=== PATIENT | female | born 1970 | race Caucasian/White ===

== ENCOUNTER → 2016-05-02 | Outpatient (CLI) | payer OTHER | END | disposition home or self-care (01) | LOC: C.LAB1850 14:27 | PROVIDERS: ATTEND Internal Medicine Pulmonary Disease | DX: J90 Pleural effusion, not elsewhere classified (principal) ==

== ENCOUNTER 2022-06-16 19:05 | Inpatient (IN) ==
[2022-06-16] MEDS ORDERED: hydrALAZINE HCL 20 MG/ML VIAL IV ONE (21:21)
[2022-06-16] MEDS ORDERED: ACETAMINOPHEN 325 MG TAB PO PRN (21:24)
--- NOTE | 2022-06-16 21:26 | History & Physical Report ---
Date of Service June 16, 2022 Assessment & Plan (1) Colitis: Plan: Presenting as LGIB at [facility] ER. History IBS past history of misdiagnosed IBD as per records Rule out active IBD No bowel movement since ER stay the last 2 days as per patient. Anemia secondary to above Hypertensive urgency secondary to illness Perinephric stranding on recent CT abdomen pelvis report rule out UTI iatrogenic adrenal insufficiency (secondary to steroid Rx for misdiagnosed IBD ) on chronic steroid Rx COPD, lung status at baseline HCV status post Rx Cirrhosis as per records, no overt decompensation GERD, stable on regimen anxiety/mood disorder, at baseline recent COVID-19 illness status post Paxlovid (3 weeks ago) past tobacco/alcohol abuse Medical telemetry given elevated BP Hydralazine 1 dose now Analgesia GI consult Re: Colitis on CT Retrieve outpatient GI notes (Dr. De La Fuente). Check UA COVID-19 isolation precautions as per current [facility] policy. DVT prophylaxis. SCDs Re: L GIB Full code Text document was generated using [employer] voice recognition software. It may contain grammatical or spelling errors. Kindly contact undersigned for clarification of any documentation item in question. Admission and Anticipated Discharge Date Admission Date: June 16, 2022 History of Present Illness Chief Complaint: Colitis as per records Primary Care Provider: Dr. Jon History obtained from patient and records. Medical history significant for iatrogenic adrenal insufficiency (secondary to steroid Rx for misdiagnosed IBD as per patient) on chronic steroid Rx, COPD, HCV status post interferon Rx (2012), cirrhosis as per records, GERD, IBS, anxiety/mood disorder, recent COVID-19 illness, past tobacco/alcohol abuse 3 weeks ago, patient had congestion symptoms. Possible sick contacts. Patient has not received COVID-19 vaccination. COVID-19 test at PCPs office positive. Patient completed outpatient Paxlovid course with improvement in congestion symptoms. Subsequent diarrhea symptoms noted at home 2 weeks ago which patient attributed to antiviral course. Intermittent bloody stools with lower abdominal pain. Involuntary weight loss over the last few months. Patient seen at [facility] ER 2 days ago. Hemoglobin noted to be normal, lactic acid within normal limits. COVID-[address] abdomen pelvis showed compression artifact versus infectious/postinflammatory colitis in the left hemicolon. Dilated fluid small bowel loops representing physiologic changes or early mild reactive small bowel ileus. Mild nonspecific central periportal edema of the liver. Patient given Decadron at the ER. General surgeon recommended GI evaluation. Patient accepted for transfer at [facility] for GI services pending bed availability. Worsening abdominal pain during ER stay the last 2 days as per patient. No bowel movement since ER stay. CT abdomen pelvis repeated today results as follows : Bilateral perinephric fat stranding which may represent pyelonephritis, recommend correlation with urinalysis. Persistent mild wall thickening of the descending colon and more conspicuous thickening of ascending colon without significant pericolonic fat stranding. Patient transferred to [facility] for GI services due to bed unavailability at [facility]. SBP 180s upon arrival at the floor. Patient denies chest pain, SOB, headache. Patient complaining of achy abdominal pain. Medical History as above 2019 colonoscopy by [facility], results not known to patient Surgical History : BTL, cervical biopsy, right knee surgery, cholecystectomy, liver biopsy, tonsillectomy/adenoidectomy, partial hysterectomy, carpal tunnel surgery Family History : Colitis, colon cancer, DM, heart disease, leukemia Personal/Social history : Past tobacco/alcohol abuse, no EtOH intake, disabled Allergies Allergy/AdvReac Type Severity Reaction Status Date / Time SHIN Inhibitors Allergy Verified 05/18/22 08:55 amlodipine Allergy Verified 05/18/22 08:55 milnacipran [From Savella] Allergy Verified 05/18/22 08:55 pregabalin [From Lyrica] Allergy Verified 05/18/22 08:55 Home Medications Medication Instructions Recorded Confirmed Type citalopram 40 mg tablet 40 mg PO DAILY 11/18/18 06/16/22 History sucralfate 1 gram tablet 1 gm PO TID 11/18/18 06/16/22 History temazepam 15 mg capsule 15 mg PO HS 01/14/20 06/16/22 History quetiapine 100 mg tablet 50 mg PO HS 03/07/22 06/16/22 History hydrocortisone sod succ (PF) 100 100 mg (2 mL) IM PRN PRN adrenal 05/18/22 06/16/22 Rx mg/2 mL solution for injection crisis #1 ea (Solu-Cortef Act-O-Vial (PF)) syringe with needle, safety 3 mL #1 ea 05/21/22 Rx 22 gauge x 1" (Monoject Safety Syringes) blood pressure test kit-medium #1 ea 05/28/22 Rx hydrocortisone 5 mg tablet See Rx Instructions PO BID #170 06/04/22 06/16/22 Rx tabs Vitamin D2 1,250 mcg PO WK 06/16/22 06/16/22 History albuterol sulfate 90 mcg/actuation 1 puff inhalation Q4H PRN 06/16/22 06/16/22 History aerosol inhaler (ProAir HFA) Shortness Of Breath Or Wheezing baclofen 5 mg tablet 5 mg PO TID PRN Spasms 06/16/22 06/16/22 History famotidine 40 mg tablet 40 mg PO DAILY 06/16/22 06/16/22 History Past Med/Surg History Medical History (Updated 06/17/22 @ 07:31 by Sandro Peña MD) Anxiety state Chronic hepatitis C Depression with anxiety Depressive disorder Dyspnea Iatrogenic adrenal insufficiency IBS (irritable bowel syndrome) Palpitations Postural hypotension Solitary pulmonary nodule Tachycardia Surgical History (Updated 01/11/20 @ 15:48 by Maureen Foote) H/O tubal ligation History of partial hysterectomy History of tonsillectomy and adenoidectomy Family History (Updated 01/11/20 @ 15:50 by Maureen Foote) Family/Other Colon cancer Leukemia Myocardial infarction Mother Anxiety Social History (Updated 01/11/20 @ 15:55 by Maureen Foote) Smoking Status: Former smoker Second Hand Exposure: No; Do You Dip or Chew Tobacco: No; Tobacco Cessation Education Requested by Patient: No Hx Alcohol Use: No Hx Substance Use: No Preferred Language: Persian Communication Ability: Effective Sleeve Maker Required: No Beliefs That Will Affect Care: None marital status: Current Living Situation: Alone Other Information That Helps Us Care for You: No Feels Safe at Home: Yes Safety Concerns: Feels Safe At This Time Assistive Devices: Denture - Upper and Denture - Lower Review of Systems Review of Systems: As per HPI, all other systems reviewed and negative Physical Exam Physical Exam: GENERAL: uncomfortable, chronically ill, looks older than stated age, no respiratory distress SKIN: Pallor , warm HEENT: Pale palpebral conjunctivae, no ptosis, dry buccal mucosa NECK : Supple, no tenderness CHEST : Decreased breath sounds, no tenderness HEART : RRR, no obvious murmurs ABDOMEN: Some distention, hypogastric tenderness EXTREMITIES : No LE swelling/tenderness, no other conspicuous deformities noted NEUROLOGIC : Coherent, no facial asymmetry, no other gross focality Results & Data Results & Data Vital Signs (Past 12 Hours) Vital Signs Temp Pulse Resp BP Pulse Ox O2 Del Method 06/16/22 21:08 36.9 C 83 18 184/106 H 98 Room Air Laboratory Results Laboratory Results WBC 7.41 K/ul (4.8-10.8) 06/16/22 22: RBC 3.57 M/uL (4.20-5.40) L 06/16/22: Hgb 11.2 g/dl (12.0-16.0) L 06/16/22: Hct 31.6 % (37.0-47.0) L 06/16/22: MCV 88.5 fL (80.0-100.0) 06/16/22: MCH 31.4 pg (25.0-34.0) 06/16/22: MCHC 35.4 g/dL (32.0-36.0) 06/16/22: RDW Std Deviation 43.3 fL (36.4-46.3) 06/16/22: RDW Coeff of Kalani 13.3 % (11.5-14.5) 06/16/22: Plt Count 273 K/uL (130-400) 06/16/22: MPV 9.3 fL (9.4-12.4) L 06/16/22: Immature Gran % (Auto) 0.4 % 06/16/22: Neut % (Auto) 50.1 % 06/16/22: Lymph % (Auto) 41.0 % 06/16/22: [place] % (Auto) 6.9 % 06/16/22: Eos % (Auto) 0.8 % 06/16/22: Baso % (Auto) 0.8 % 06/16/22: Neut # (Auto) 3.71 K/uL (1.40-6.50) 06/16/22: Lymph # (Auto) 3.04 K/uL (1.2-3.4) 06/16/22: [place] # (Auto) 0.51 K/uL (0.11-0.59) 06/16/22 22:27 Eos # (Auto) 0.06 K/uL (0-0.50) 06/16/22 22:27 Baso # (Auto) 0.06 K/uL (0-0.2) 06/16/22 22:27 Immature Gran # (Auto) 0.03 K/uL (0.01-0.20) 06/16/22 22:27 Sodium 139 mmol/L (136-145) 06/16/22 22: Potassium 3.8 mmol/L (3.5-5.1) 06/16/22 22: Chloride 109 mmol/L (98-107) H 06/16/22 22: Carbon Dioxide 23 mmol/L (21-32) 06/16/22 22: Anion Gap 7 (3-11) 06/16/22 22: BUN 12 mg/dl (6-23) 06/16/22 22: Creatinine 0.74 mg/dl (0.6-1.2) 06/16/22: Est Cr Clr Drug Dosing 67.1 ml/min 06/16/22 22: Est GFR ( Amer) 108.0 ml/min 06/16/22 22: Est GFR (Non-Af Amer) 93.1 ml/min 06/16/22 22: BUN/Creatinine Ratio 16.2 (10-20) 06/16/22 22: Glucose 61 mg/dl (70-99(Fasting)) L 06/16/22 22: Calcium 8.3 mg/dl (8.6-10.3) L 06/16/22: Magnesium 1.9 mg/dl (1.7-2.4) 06/16/22: Total Bilirubin 0.4 mg/dl (0.2-1.0) 06/16/22 22: AST 16 U/L (13-39) 06/16/22 22: ALT 10 U/L (7-52) 06/16/22 22: Alkaline Phosphatase 59 U/L (34-104) 06/16/22 22: Total Protein 6.0 gm/dl (6.0-8.3) 06/16/22:27 Albumin 3.7 gm/dl (3.4-5.0) 06/16/22 22:27 Globulin 2.3 gm/dl (2.5-4.0) L 06/16/22 22:27 Albumin/Globulin Ratio 1.6 (0.9-2) 06/16/22 22:27
[2022-06-16] MEDS ORDERED: PROMETHAZINE HCL 12.5 MG in SODIUM CHLORIDE 0.9% 50 ML IV PRN (21:29)
[2022-06-16] MEDS ORDERED: Patient's HEIGHT &/or WEIGHT Needed SCH (21:30)
[2022-06-16 22:49] LABS: Basophils # (auto) 0.06 K/uL (0-0.2); Basophils % (auto) 0.8 %; Eosinophils # (auto) 0.06 K/uL (0-0.50); Eosinophils % (auto) 0.8 %; Hematocrit (blood only) 31.6 % (37.0-47.0); Hemoglobin 11.2 g/dl (12.0-16.0); Immature Granulocytes # (auto) 0.03 K/uL (0.01-0.20); Immature Granulocytes % (auto) 0.4 %; Lymphocytes # (auto) 3.04 K/uL (1.2-3.4); Mean Corpuscular Hemoglobin 31.4 pg (25.0-34.0); Mean Corpuscular Hgb Conc 35.4 g/dL (32.0-36.0); Mean Corpuscular Volume 88.5 fL (80.0-100.0); Mean Platelet Volume 9.3 fL (9.4-12.4); Monocytes # (auto) 0.51 K/uL (0.11-0.59); Monocytes % (auto) 6.9 %; Neutrophils # (auto) 3.71 K/uL (1.40-6.50); Neutrophils % (auto) 50.1 %; Platelet Count 273 K/uL (130-400); RDW Coefficient of Variation 13.3 % (11.5-14.5); RDW Standard Deviation 43.3 fL (36.4-46.3); Red Blood Count 3.57 M/uL (4.20-5.40); White Blood Count 7.41 K/ul (4.8-10.8)
[2022-06-16] MEDS ORDERED: PROMETHAZINE HCL 6.25 MG in SODIUM CHLORIDE 0.9% 50 ML IV PRN (22:50)
[2022-06-16 23:06] LABS: Albumin Globulin Ratio 1.6 (0.9-2); Albumin Level 3.7 gm/dl (3.4-5.0); BUN Creatinine Ratio 16.2 (10-20); Bilirubin,Total 0.4 mg/dl (0.2-1.0); Calcium 8.3 mg/dl (8.6-10.3); Creatinine Clr Calc Pharmacy 67.1 ml/min; Est GFR (Non-African American) 93.1 ml/min; Globulin 2.3 gm/dl (2.5-4.0); Magnesium 1.9 mg/dl (1.7-2.4); Potassium 3.8 mmol/L (3.5-5.1)
[2022-06-16] MEDS ORDERED: TEMAZEPAM 15 MG CAPSULE PO PRN (23:36)
[2022-06-16] MEDS ORDERED: GABAPENTIN 600 MG TAB PO STA (23:36)
[2022-06-16] MEDS ORDERED: POLYETHYLENE (MIRALAX) 17 GM PACK PO PRN (23:36)
[2022-06-16] MEDS ORDERED: QUEtiapine FUMARATE 25 MG TABLET PO STA (23:36)
[2022-06-16] MEDS ORDERED: CARBOHYDRATES FOR HYPOGLYCEMIA PO PRN (23:38)
[2022-06-16] MEDS ORDERED: DEXTROSE 50% 50 ML SYRINGE IV PRN (23:38)
[2022-06-16] MEDS ORDERED: GLUCAGON FOR INJ 1 MG VIAL SQ PRN (23:38)
[2022-06-16] MEDS ORDERED: GLUCOSE 40% GEL 15 GM TUBE PO PRN (23:38)
[2022-06-16] MEDS ORDERED: GLUCOSE 10 TAB/TUBE PO PRN (23:38)
[2022-06-16] MEDS ORDERED: SODIUM CHLORIDE 0.9% 1000ML 1,000 ML IV ONE (23:45)
[2022-06-17] MEDS: oxyCODONE HCL IR 5 MG TAB (IMMEDIATE RELEASE) PO PRN ×4 (00:16→18:14)
[2022-06-17] MEDS: DOCUSATE SODIUM/SENNA 50/8.6MG TAB PO SCH ×2 (00:17→09:52)
[2022-06-17] MEDS ORDERED: hydrALAZINE HCL 20 MG/ML VIAL IV ONE ×2 (02:41→18:00)
[2022-06-17] MEDS ORDERED: ACETAMINOPHEN 500 MG TAB PO PRN (06:43)
[2022-06-17 07:12] LABS: Hematocrit (blood only) 32.3 % (37.0-47.0); Hemoglobin 11.3 g/dl (12.0-16.0); Mean Corpuscular Hemoglobin 31.2 pg (25.0-34.0); Mean Corpuscular Volume 89.2 fL (80.0-100.0); Mean Platelet Volume 9.6 fL (9.4-12.4); Platelet Count 243 K/uL (130-400); RDW Coefficient of Variation 13.2 % (11.5-14.5); RDW Standard Deviation 43.5 fL (36.4-46.3); Red Blood Count 3.62 M/uL (4.20-5.40); White Blood Count 6.06 K/ul (4.8-10.8)
[2022-06-17 07:47] LABS: BUN Creatinine Ratio 16.7 (10-20); Calcium 8.6 mg/dl (8.6-10.3); Creatinine Clr Calc Pharmacy 63.7 ml/min; Est GFR (African American) 101.3 ml/min; Est GFR (Non-African American) 87.4 ml/min; Potassium 3.9 mmol/L (3.5-5.1)
[2022-06-17 07:59] LABS: Basophils # (auto) 0.04 K/uL (0-0.2); Basophils % (auto) 0.7 %; Eosinophils # (auto) 0.08 K/uL (0-0.50); Eosinophils % (auto) 1.3 %; Immature Granulocytes # (auto) 0.02 K/uL (0.01-0.20); Immature Granulocytes % (auto) 0.3 %; Lymphocytes # (auto) 3.45 K/uL (1.2-3.4); Lymphocytes % (auto) 56.9 %; Monocytes # (auto) 0.42 K/uL (0.11-0.59); Monocytes % (auto) 6.9 %; Neutrophils # (auto) 2.05 K/uL (1.40-6.50); Neutrophils % (auto) 33.9 %
[2022-06-17] MEDS: HYDROCORTISONE 10 MG TAB PO SCH ×2 (08:54→12:54)
--- NOTE | 2022-06-17 09:47 | Gastrointestinal Consultation ---
Date of Consultation June 17, 2022 Assessment & Plan (1) Colitis: Currently she has an acute/subacute colitis and I feel it is too early to do colonoscopy. Colonoscopy in the acute phase can be confusing as to making the diagnosis of IBD vs acute infectious colitis. She has been "misdiagnosed" with Crohn's in the past and we don't want to do that again. On top of that she no longer has diarrhea and hasn't had a BM in days. Her colitis could be related to COVID and/or treatment as well. I would prefer to observe over the next few days and she how she does. She agrees as she doesn't want to be misdiagnosed again. History of Present Illness Reason for Consultation: colitis Attending Physician: Ronnell Lizarraga MD History of Present Illness 51 year old female who had COVID two weeks ago and received paxlovid. During that time she developed significant diarrhea and abdominal pain.This persisted over two weeks and she finally presented to ER with abdominal pain. CT shows left sided colitis although I can't find that report. She tells me she still has pain although it isn't as bad. She has not had a bowel movement since . Of note she says in [id number] she was diagnosed with Crohn's disease and treated but then was told she had IBS. Years later she says she was diagnosed with adrenal insufficiency related to her steroid usage. She typically has IBS and her bowel movements were normal for her prior to this starting. Allergies Allergy/AdvReac Type Severity Reaction Status Date / Time SHIN Inhibitors Allergy Verified 05/18/22 08:55 amlodipine Allergy Verified 05/18/22 08:55 milnacipran [From Savella] Allergy Verified 05/18/22 08:55 pregabalin [From Lyrica] Allergy Verified 05/18/22 08:55 Home Medications Medication Instructions Recorded Confirmed Type citalopram 40 mg tablet 40 mg PO DAILY 11/18/18 06/16/22 History sucralfate 1 gram tablet 1 gm PO TID 11/18/18 06/16/22 History temazepam 15 mg capsule 15 mg PO HS 01/14/20 06/16/22 History quetiapine 100 mg tablet 50 mg PO HS 03/07/22 06/16/22 History hydrocortisone sod succ (PF) 100 100 mg (2 mL) IM PRN PRN adrenal 05/18/22 06/16/22 Rx mg/2 mL solution for injection crisis #1 ea (Solu-Cortef Act-O-Vial (PF)) syringe with needle, safety 3 mL #1 ea 05/21/22 Rx 22 gauge x 1" (Monoject Safety Syringes) blood pressure test kit-medium #1 ea 05/28/22 Rx hydrocortisone 5 mg tablet See Rx Instructions PO BID #170 06/04/22 06/16/22 Rx tabs Vitamin D2 1,250 mcg PO WK 06/16/22 06/16/22 History albuterol sulfate 90 mcg/actuation 1 puff inhalation Q4H PRN 06/16/22 06/16/22 History aerosol inhaler (ProAir HFA) Shortness Of Breath Or Wheezing baclofen 5 mg tablet 5 mg PO TID PRN Spasms 06/16/22 06/16/22 History famotidine 40 mg tablet 40 mg PO DAILY 06/16/22 06/16/22 History Patient History Medical History Anxiety state Chronic hepatitis C Depression with anxiety Depressive disorder Dyspnea Iatrogenic adrenal insufficiency IBS (irritable bowel syndrome) Palpitations Postural hypotension Solitary pulmonary nodule Tachycardia Surgical History H/O tubal ligation History of partial hysterectomy History of tonsillectomy and adenoidectomy Family History Family/Other Colon cancer Leukemia Myocardial infarction Mother Anxiety Social History Smoking Status: Former smoker Second Hand Exposure: No; Do You Dip or Chew Tobacco: No; Tobacco Cessation Education Requested by Patient: No Hx Alcohol Use: No Hx Substance Use: No Preferred Language: German Communication Ability: Effective Cafe Worker Required: No Beliefs That Will Affect Care: None marital status: Current Living Situation: Alone Other Information That Helps Us Care for You: No Feels Safe at Home: Yes Safety Concerns: Feels Safe At This Time Assistive Devices: Denture - Upper and Denture - Lower Review of Systems Review of Systems: All systems reviewed & are unremarkable except as noted in HPI & below Physical Exam Constitutional: WD/WN, vitals as above no acute distress Eyes: PERRL, conjunctivae normal, anicteric sclerae ENMT: external ear and nose normal, oropharynx normal Neck: trachea midline, no thyromegaly Respiratory: normal respiratory effort, lungs clear to auscultation Cardiovascular: RRR, no murmur, no edema Gastrointestinal (Abdomen): Inspection/Auscultation: abdomen normal to inspection Percussion/Palpation: + abdomen tender (left lower abdomen) and abdomen soft Musculoskeletal: Extremities: no cyanosis and no clubbing Skin: no rashes, warm and dry Neurologic: PERRL, EOMI, accommodation nl, no face palsy, no dysarthria Psychiatric: Orientation: alert and oriented x 3 Results & Data Vital Signs (Past 12 Hours) Vital Signs Temp Pulse Pulse Resp BP BP Pulse Ox 06/17/22 07:25 36.5 C 66 16 136/85 98 06/17/22 07:12 58 L 06/17/22 02:56 36.7 C 62 16 127/82 98 06/17/22 00:07 60 06/17/22 00:32 36.7 C 61 18 156/93 H 99 06/16/22 23:55 O2 Del Method 06/17/22 07:25 Room Air 06/17/22 07:12 06/17/22 02:56 Room Air 06/17/22 00:07 06/17/22 00:32 Room Air 06/16/22 23:55 Room Air Laboratory Results 06/17/22 06/17/22 06/17/22 Range/Units 08:55 07:53 06:28 WBC (4.8-10.8) K/ul RBC (4.20-5.40) M/uL Hgb (12.0-16.0) g/dl Hct (37.0-47.0) % MCV (80.0-100.0) fL MCH (25.0-34.0) pg MCHC (32.0-36.0) g/dL RDW Std Deviation (36.4-46.3) fL RDW Coeff of Kalani (11.5-14.5) % Plt Count (130-400) K/uL MPV (9.4-12.4) fL Immature Gran % (Auto) % Neut % (Auto) % Lymph % (Auto) % [place] % (Auto) % Eos % (Auto) % Baso % (Auto) % Neut # (Auto) (1.40-6.50) K/uL Lymph # (Auto) (1.2-3.4) K/uL [place] # (Auto) (0.11-0.59) K/uL Eos # (Auto) (0-0.50) K/uL Baso # (Auto) (0-0.2) K/uL Immature Gran # (Auto) (0.01-0.20) K/uL Sodium 141 (136-145) mmol/L Potassium 3.9 (3.5-5.1) mmol/L Chloride 109 H (98-107) mmol/L Carbon Dioxide 22 (21-32) mmol/L Anion Gap 10 (3-11) BUN 13 (6-23) mg/dl Creatinine 0.78 (0.6-1.2) mg/dl Est Cr Clr Drug Dosing 63.7 ml/min Est GFR ( Amer) 101.3 ml/min Est GFR (Non-Af Amer) 87.4 ml/min BUN/Creatinine Ratio 16.7 (10-20) Glucose 45 L* (70-99(Fasting)) mg/dl POC Glucose 167 H 47 L* (70-99) mg/dl Calcium 8.6 (8.6-10.3) mg/dl Magnesium (1.7-2.4) mg/dl Total Bilirubin (0.2-1.0) mg/dl AST (13-39) U/L ALT (7-52) U/L Alkaline Phosphatase (34-104) U/L Total Protein (6.0-8.3) gm/dl Albumin (3.4-5.0) gm/dl Globulin (2.5-4.0) gm/dl Albumin/Globulin Ratio (0.9-2) 06/17/22 06/16/22 06/16/22 Range/Units 06:28 22:27 22:27 WBC 6.06 7.41 (4.8-10.8) K/ul RBC 3.62 L 3.57 L (4.20-5.40) M/uL Hgb 11.3 L 11.2 L (12.0-16.0) g/dl Hct 32.3 L 31.6 L (37.0-47.0) % MCV 89.2 88.5 (80.0-100.0) fL MCH 31.2 31.4 (25.0-34.0) pg MCHC 35.0 35.4 (32.0-36.0) g/dL RDW Std Deviation 43.5 43.3 (36.4-46.3) fL RDW Coeff of Kalani 13.2 13.3 (11.5-14.5) % Plt Count 243 273 (130-400) K/uL MPV 9.6 9.3 L (9.4-12.4) fL Immature Gran % (Auto) 0.3 0.4 % Neut % (Auto) 33.9 50.1 % Lymph % (Auto) 56.9 41.0 % [place] % (Auto) 6.9 6.9 % Eos % (Auto) 1.3 0.8 % Baso % (Auto) 0.7 0.8 % Neut # (Auto) 2.05 3.71 (1.40-6.50) K/uL Lymph # (Auto) 3.45 H 3.04 (1.2-3.4) K/uL [place] # (Auto) 0.42 0.51 (0.11-0.59) K/uL Eos # (Auto) 0.08 0.06 (0-0.50) K/uL Baso # (Auto) 0.04 0.06 (0-0.2) K/uL Immature Gran # (Auto) 0.02 0.03 (0.01-0.20) K/uL Sodium 139 (136-145) mmol/L Potassium 3.8 (3.5-5.1) mmol/L Chloride 109 H (98-107) mmol/L Carbon Dioxide 23 (21-32) mmol/L Anion Gap 7 (3-11) BUN 12 (6-23) mg/dl Creatinine 0.74 (0.6-1.2) mg/dl Est Cr Clr Drug Dosing 67.1 ml/min Est GFR ( Amer) 108.0 ml/min Est GFR (Non-Af Amer) 93.1 ml/min BUN/Creatinine Ratio 16.2 (10-20) Glucose 61 L (70-99(Fasting)) mg/dl POC Glucose (70-99) mg/dl Calcium 8.3 L (8.6-10.3) mg/dl Magnesium 1.9 (1.7-2.4) mg/dl Total Bilirubin 0.4 (0.2-1.0) mg/dl AST 16 (13-39) U/L ALT 10 (7-52) U/L Alkaline Phosphatase 59 (34-104) U/L Total Protein 6.0 (6.0-8.3) gm/dl Albumin 3.7 (3.4-5.0) gm/dl Globulin 2.3 L (2.5-4.0) gm/dl Albumin/Globulin Ratio 1.6 (0.9-2)
[2022-06-17] MEDS: CITALOPRAM 40 MG TAB PO SCH (09:52)
[2022-06-17] MEDS: FAMOTIDINE 40 MG TABLET PO SCH (09:52)
[2022-06-17] MEDS: SUCRALFATE 1 GM TAB PO SCH ×3 (09:53→21:22)
[2022-06-17] MEDS: MoRPHine SULFATE 2 MG/ML CARP IV PRN ×3 (10:36→21:19)
--- NOTE | 2022-06-17 11:31 | Hospitalist Progress Note ---
Date of Service June 17, 2022 Assessment & Plan (1) Colitis: Plan: Presenting as LGIB at [facility] ER. History IBS past history of misdiagnosed IBD as per records Rule out active IBD No bowel movement since ER stay the last 2 days as per patient. Last BM AM stool studies ordered - pending collection GI consult Re: Colitis on CT Per GI - no plan for colonoscopy at this time, cont. to observe Retrieve outpatient GI notes (Dr. De La Fuente). Analgesia Anemia secondary to above Monitor H&H, AM CBC ordered Perinephric stranding on recent CT abdomen pelvis report rule out UTI, UA recommended ->UA negative recent COVID-19 illness status post Paxlovid (3 weeks ago) COVID-19 isolation precautions as per current [facility] policy. Hypertensive urgency secondary to illness, cont. to monitor BP Received 1 time dose of hydralazine on admission iatrogenic adrenal insufficiency (secondary to steroid Rx for misdiagnosed IBD ) on chronic steroid Rx COPD, lung status at baseline HCV status post Rx Cirrhosis as per records, no overt decompensation GERD, stable on regimen anxiety/mood disorder, at baseline past tobacco/alcohol abuse DVT prophylaxis. SCDs Re: L GIB Full code Admission and Anticipated Discharge Date Admission Date: June 16, 2022 Subjective Pt seen in follow up colitis, +covid Transferred from outside ER Currently laying in bed, in no acute distress, reports abdominal cramping, however no stool since morning Reports chills at night intermittently No chest pain or shortness of breath Seen by GI today, no plan for colonoscopy at this time, continue to monitor Review of Systems Review of Systems: All systems reviewed & are unremarkable except as noted in Subjective Physical Exam Physical Exam: GENERAL: uncomfortable, chronically ill appearing, in NAD HEENT: NC/AT. Pale palpebral conjunctivae, no ptosis NECK : Supple, no tenderness CHEST : Decreased breath sounds, no tenderness HEART : RRR, no obvious murmurs ABDOMEN: Some distention, hypogastric tenderness EXTREMITIES : No LE swelling/tenderness, moves extremities SKIN: Pallor , warm NEUROLOGIC : awake alert oriented, no facial asymmetry, speech fluent, moves extremities Results & Data Results & Data Vital Signs (Past 12 Hours) Vital Signs Temp Pulse Pulse Resp BP BP Pulse Ox 06/17/22 07:25 36.5 C 66 16 136/85 98 06/17/22 07:12 58 L 06/17/22 02:56 36.7 C 62 16 127/82 98 06/17/22 00:07 60 06/17/22 00:32 36.7 C 61 18 156/93 H 99 06/16/22 23:55 O2 Del Method 06/17/22 07:25 Room Air 06/17/22 07:12 06/17/22 02:56 Room Air 06/17/22 00:07 06/17/22 00:32 Room Air 06/16/22 23:55 Room Air Laboratory Results 06/17/22 06/17/22 06/17/22 Range/Units 08:55 07:53 06:28 WBC (4.8-10.8) K/ul RBC (4.20-5.40) M/uL Hgb (12.0-16.0) g/dl Hct (37.0-47.0) % MCV (80.0-100.0) fL MCH (25.0-34.0) pg MCHC (32.0-36.0) g/dL RDW Std Deviation (36.4-46.3) fL RDW Coeff of Kalani (11.5-14.5) % Plt Count (130-400) K/uL MPV (9.4-12.4) fL Immature Gran % (Auto) % Neut % (Auto) % Lymph % (Auto) % [place] % (Auto) % Eos % (Auto) % Baso % (Auto) % Neut # (Auto) (1.40-6.50) K/uL Lymph # (Auto) (1.2-3.4) K/uL [place] # (Auto) (0.11-0.59) K/uL Eos # (Auto) (0-0.50) K/uL Baso # (Auto) (0-0.2) K/uL Immature Gran # (Auto) (0.01-0.20) K/uL Sodium 141 (136-145) mmol/L Potassium 3.9 (3.5-5.1) mmol/L Chloride 109 H (98-107) mmol/L Carbon Dioxide 22 (21-32) mmol/L Anion Gap 10 (3-11) BUN 13 (6-23) mg/dl Creatinine 0.78 (0.6-1.2) mg/dl Est Cr Clr Drug Dosing 63.7 ml/min Est GFR ( Amer) 101.3 ml/min Est GFR (Non-Af Amer) 87.4 ml/min BUN/Creatinine Ratio 16.7 (10-20) Glucose 45 L* (70-99(Fasting)) mg/dl POC Glucose 167 H 47 L* (70-99) mg/dl Calcium 8.6 (8.6-10.3) mg/dl Magnesium (1.7-2.4) mg/dl Total Bilirubin (0.2-1.0) mg/dl AST (13-39) U/L ALT (7-52) U/L Alkaline Phosphatase (34-104) U/L Total Protein (6.0-8.3) gm/dl Albumin (3.4-5.0) gm/dl Globulin (2.5-4.0) gm/dl Albumin/Globulin Ratio (0.9-2) 06/17/22 06/16/22 06/16/22 Range/Units 06:28 22:27 22:27 WBC 6.06 7.41 (4.8-10.8) K/ul RBC 3.62 L 3.57 L (4.20-5.40) M/uL Hgb 11.3 L 11.2 L (12.0-16.0) g/dl Hct 32.3 L 31.6 L (37.0-47.0) % MCV 89.2 88.5 (80.0-100.0) fL MCH 31.2 31.4 (25.0-34.0) pg MCHC 35.0 35.4 (32.0-36.0) g/dL RDW Std Deviation 43.5 43.3 (36.4-46.3) fL RDW Coeff of Kalani 13.2 13.3 (11.5-14.5) % Plt Count 243 273 (130-400) K/uL MPV 9.6 9.3 L (9.4-12.4) fL Immature Gran % (Auto) 0.3 0.4 % Neut % (Auto) 33.9 50.1 % Lymph % (Auto) 56.9 41.0 % [place] % (Auto) 6.9 6.9 % Eos % (Auto) 1.3 0.8 % Baso % (Auto) 0.7 0.8 % Neut # (Auto) 2.05 3.71 (1.40-6.50) K/uL Lymph # (Auto) 3.45 H 3.04 (1.2-3.4) K/uL [place] # (Auto) 0.42 0.51 (0.11-0.59) K/uL Eos # (Auto) 0.08 0.06 (0-0.50) K/uL Baso # (Auto) 0.04 0.06 (0-0.2) K/uL Immature Gran # (Auto) 0.02 0.03 (0.01-0.20) K/uL Sodium 139 (136-145) mmol/L Potassium 3.8 (3.5-5.1) mmol/L Chloride 109 H (98-107) mmol/L Carbon Dioxide 23 (21-32) mmol/L Anion Gap 7 (3-11) BUN 12 (6-23) mg/dl Creatinine 0.74 (0.6-1.2) mg/dl Est Cr Clr Drug Dosing 67.1 ml/min Est GFR ( Amer) 108.0 ml/min Est GFR (Non-Af Amer) 93.1 ml/min BUN/Creatinine Ratio 16.2 (10-20) Glucose 61 L (70-99(Fasting)) mg/dl POC Glucose (70-99) mg/dl Calcium 8.3 L (8.6-10.3) mg/dl Magnesium 1.9 (1.7-2.4) mg/dl Total Bilirubin 0.4 (0.2-1.0) mg/dl AST 16 (13-39) U/L ALT 10 (7-52) U/L Alkaline Phosphatase 59 (34-104) U/L Total Protein 6.0 (6.0-8.3) gm/dl Albumin 3.7 (3.4-5.0) gm/dl Globulin 2.3 L (2.5-4.0) gm/dl Albumin/Globulin Ratio 1.6 (0.9-2) Medications Administered Current Inpatient Medications Acetaminophen (Acetaminophen 500 Mg Tab) 500 mg PO Q6H PRN PRN Reason: pain/fever Stop: 07/17/22 06:42 Citalopram Hydrobromide (Citalopram 40 Mg Tab) 40 mg PO DAILY SANDI Stop: 07/17/22 08:59 Last Admin: 06/17/22 09:52 Dose: 40 mg Dextrose (Dextrose 50% 50 Ml Syringe) 25 - 50 ml IV UD PRN; Protocol PRN Reason: Hypoglycemia Protocol Stop: 07/16/22 23:37 Famotidine (Famotidine 40 Mg Tablet) 40 mg PO DAILY SANDI Stop: 07/17/22 08:59 Last Admin: 06/17/22 09:52 Dose: 40 mg Glucagon (Glucagon For Inj 1 Mg Vial) 1 mg SQ UD PRN; Protocol PRN Reason: Hypoglycemia Protocol Stop: 07/16/22 23:37 Glucose (Glucose 10 Tab/Tube) 4 - 8 tab PO UD PRN; Protocol PRN Reason: Hypoglycemia Treatment Stop: 07/16/22 23:37 Glucose (Glucose 40% Gel 15 Gm Tube) 15 - 30 gm PO UD PRN; Protocol PRN Reason: Hypoglycemia Protocol Stop: 07/16/22 23:37 Hydrocortisone (Hydrocortisone 10 Mg Tab) 10 mg PO 0800 SANDI Stop: 07/17/22 07:59 Last Admin: 06/17/22 08:54 Dose: 10 mg Hydrocortisone (Hydrocortisone 10 Mg Tab) 5 mg PO 1200 SANDI Stop: 07/17/22 11:59 Last Admin: 06/17/22 12:54 Dose: 5 mg Promethazine HCl 6.25 mg/ (Sodium Chloride) 50.25 mls @ 201 mls/hr IV Q6H PRN PRN Reason: Nausea And Vomiting Stop: 07/16/22 22:49 Sodium Chloride (Nss 1000ml) 1,000 mls @ 50 mls/hr IV .Q20H ONE Stop: 06/17/22 19:44 Last Admin: 06/17/22 00:17 Dose: 50 mls/hr Miscellaneous (Carbohydrates For Hypoglycemia ) 15 - 30 gm PO UD PRN PRN Reason: Hypoglycemia Protocol Stop: 07/16/22 23:37 Morphine Sulfate (Morphine Sulfate 2 Mg/Ml Carp) 2 mg IV Q4H PRN PRN Reason: Pain Stop: 06/30/22 22:49 Last Admin: 06/17/22 10:36 Dose: 2 mg Oxycodone HCl (Oxycodone Hcl Ir 5 Mg Tab (Immediate Release)) 5 mg PO Q4H PRN PRN Reason: Pain Stop: 06/30/22 22:49 Last Admin: 06/17/22 13:04 Dose: 5 mg Polyethylene Glycol (Polyethylene (Miralax) 17 Gm Pack) 17 gm PO DAILY PRN PRN Reason: Constipation Stop: 07/16/22 23:35 Quetiapine Fumarate (Quetiapine Fumarate 25 Mg Tablet) 50 mg PO [facility] Stop: 07/17/22 20:59 Senna/Docusate Sodium (Docusate Sodium/Senna 50/8.6mg Tab) 1 tab PO QAM [facility] Stop: 07/16/22 23:39 Last Admin: 06/17/22 09:52 Dose: 1 tab Sucralfate (Sucralfate 1 Gm Tab) 1 gm PO TID [facility] Stop: 07/17/22 08:59 Last Admin: 06/17/22 13:04 Dose: 1 gm Temazepam (Temazepam 15 Mg Capsule) 15 mg PO [facility] Stop: 07/17/22 20:59
[2022-06-17 12:17] LABS: Appearance Urine Clear (Clear); Bilirubin Urine Negative (Negative); Blood Urine Negative (Negative); Color Urine Yellow; Glucose Urine UA Negative (Negative); Ketones Urine Negative (Negative); Leukocyte Esterase Urine Negative (Negative); Nitrite Urine Negative (Negative); Protein Urine Negative (Negative); Specific Gravity Urine <= 1.005 (1.000-1.030); Urobilinogen Urine Negative (Negative); pH Urine 5.5 (4.5-7.5)
[2022-06-17] MEDS ORDERED: cloNIDine HCL 0.1 MG TAB PO ONE (19:31)
[2022-06-17] MEDS: QUEtiapine FUMARATE 25 MG TABLET PO SCH (21:23)
[2022-06-17] MEDS: TEMAZEPAM 15 MG CAPSULE PO SCH (21:26)
[2022-06-18] MEDS: oxyCODONE HCL IR 5 MG TAB (IMMEDIATE RELEASE) PO PRN ×4 (00:43→16:59)
[2022-06-18] MEDS: MoRPHine SULFATE 2 MG/ML CARP IV PRN ×2 (02:16→15:47)
[2022-06-18] MEDS ORDERED: KETOROLAC TROMETHAMINE 15 MG/ML VIAL IV ONE (03:23)
[2022-06-18 06:35] LABS: Hematocrit (blood only) 30.9 % (37.0-47.0); Hemoglobin 11.4 g/dl (12.0-16.0); Mean Corpuscular Hemoglobin 31.4 pg (25.0-34.0); Mean Corpuscular Hgb Conc 36.9 g/dL (32.0-36.0); Mean Corpuscular Volume 85.1 fL (80.0-100.0); Mean Platelet Volume 9.7 fL (9.4-12.4); Platelet Count 269 K/uL (130-400); RDW Coefficient of Variation 12.7 % (11.5-14.5); RDW Standard Deviation 39.5 fL (36.4-46.3); Red Blood Count 3.63 M/uL (4.20-5.40); White Blood Count 7.37 K/ul (4.8-10.8)
[2022-06-18 06:54] LABS: BUN Creatinine Ratio 9.4 (10-20); Calcium 8.6 mg/dl (8.6-10.3); Creatinine Clr Calc Pharmacy 77.6 ml/min; Est GFR (African American) 118.9 ml/min; Est GFR (Non-African American) 102.6 ml/min; Magnesium 1.8 mg/dl (1.7-2.4); Phosphorus 2.9 mg/dl (2.5-4.9); Potassium 3.2 mmol/L (3.5-5.1)
[2022-06-18] MEDS: HYDROCORTISONE 10 MG TAB PO SCH ×2 (07:42→11:11)
[2022-06-18] MEDS: SUCRALFATE 1 GM TAB PO SCH ×3 (08:18→20:18)
[2022-06-18] MEDS: DOCUSATE SODIUM/SENNA 50/8.6MG TAB PO SCH ×2 (08:18→20:16)
[2022-06-18] MEDS: FAMOTIDINE 40 MG TABLET PO SCH (08:18)
[2022-06-18] MEDS: CITALOPRAM 40 MG TAB PO SCH (08:18)
[2022-06-18] MEDS: KETOROLAC TROMETHAMINE 15 MG/ML VIAL IV PRN ×2 (08:36→14:35)
--- NOTE | 2022-06-18 12:08 | Gastroenterology Progress Note ---
Date of Service June 18, 2022 Assessment & Plan (1) Colitis: Plan Suspect that her diarrhea was initially secondary to either the COVID or the antiviral treatment for the COVID. Lack of bowel movements since last most likely represent effect of narcotics on the bowel. If at all possible would avoid any further CT scans that she is already had 3 done in the last 2 weeks. Judicious use of narcotics if at all. Will check a KUB tomorrow to verify no significant bowel distention. Clear liquids p.o. Would advance once pain is improved. Okay to use laxatives prn as there is no obstruction on imaging. If constipation persists and still using narcotics then would add Relistor. If diarrhea recurs, would check stools for GI path and C-diff. Recommend outpatient colonoscopy follow-up in 1 to 2 months. Patient states she would rather get that locally in [place]. Admission and Anticipated Discharge Date Admission Date: June 16, 2022 Supervising Physician Co-Signing Physician Notes Consult for diarrhea that appears to now be constipation. She has been seen by varying other GI providers in the past with reports of a diagnosis of crohn's in the past between [id number] (unclear which gi doctor made that diagnosis) treated with steroids, then developed some issues thereafter with adrenals, thereafter diagnosed with IBS. She had diarrhea, recently diagnosed with covid, with diarrhea as well while on paxlovid. Now with imaging findings suggestive of colitis but has not had a bm since last . Agree with PE as documented. Agree with further plan of care as documented. Subjective 51 yr female who symptoms began during COVID. Initial symptoms were diarrhea which she attributed to the antiviral treatment for the COVID. Reports having chronic abdominal pain at baseline from IBS. This became severe pain mostly in the left lower quadrant radiating around to the left lower back last . She presented to [facility]. She had a total of 3 CT scans of the abdomen and pelvis there for this illness. These are scanned into her records. June 05 scan without any bowel abnormalities. June 14 and June 16 scans with non specific large bowel colitis. Initially diarrhea, now no bowel movement since last (June 14) Review of Systems Review of Systems: ROS: Gen: + weakness from COVID, +weight loss Eyes: No eye redness, or pain, no recent vision changes Resp: No SOB, no cough Cardio: No palpitations/irregular beats, no chest pain GI: + abd pain, diarrhea, now constipation : Denies pain on urination Skin: No jaundice, itching or new rashes Physical Exam Constitutional: WD/WN, vitals as above Eyes: PERRL, conjunctivae normal, anicteric sclerae ENMT: external ear and nose normal, oropharynx normal Neck: trachea midline, no thyromegaly Respiratory: normal respiratory effort, lungs clear to auscultation Cardiovascular: RRR, no murmur, no edema Gastrointestinal (Abdomen): Very thin person w minimal abd distention. BS are present, normal to hypoactive. Skin: no rashes, warm and dry Neurologic: PERRL, EOMI, accommodation nl, no face palsy, no dysarthria Psychiatric: A+Ox3, euthymic affect Lymphatic: no cervical or axillary lymphadenopathy Results & Data Vital Signs (Past 12 Hours) Vital Signs Temp Pulse Pulse Resp BP Pulse Ox O2 Del Method 06/18/22 07:15 53 L 06/18/22 10:00 62 168/98 H 06/18/22 08:06 36.6 C 60 18 175/117 H 99 Room Air 06/18/22 03:18 37.0 C 61 18 157/96 H 95 Room Air Laboratory Results WBC 7.3, Hb 11.4, HCT 30.9, PLT S269, NA 140, K3.2, CL 107, CO2 25, BUN 6, CR 0.64, glucose 70 Diagnostic Findings See scanned results of Ct scans from [facility]: 06/05 w IV contrast: no bowel abnormalities. Liver, Pancreas and bile ducts also noted to be normal. 06/14 w IV contrast: Mild circumferential wall thickening of the transverse descending and mid sigmoid colon. 06/16 non contrast: Non circumferential,mild, persistent wall thickening of the ascending and descending colon.
[2022-06-18] MEDS ORDERED: hydrALAZINE HCL 20 MG/ML VIAL IV ONE (17:07)
[2022-06-18] MEDS ORDERED: METOPROLOL TARTRATE 25 MG TAB PO SCH (17:15)
--- NOTE | 2022-06-18 17:40 | Hospitalist Progress Note ---
Date of Service June 18, 2022 Assessment & Plan (1) Colitis: Plan: To rule out inflammatory bowel disease Presenting as LGIB at [facility] ER. History IB Remote steroid administration for presumed Crohn's disease/IBD No bowel movement since ER stay the last 2 days as per patient. Last BM AM stool studies ordered - pending collection GI consult Re: Colitis on CT Per GI - no plan for colonoscopy at this time, cont. to observe Will give Metamucil tonight Analgesia-less use of narcotics Recent COVID-19 illness status post Paxlovid (3 weeks ago) COVID-19 isolation precautions as per current [facility] policy. Anemia secondary to above Globin remains stable at 11.4 CAD (coronary artery disease): History NSTEMI 2011 s/p MARQUISE to LAD. No acute cardiac issues Perinephric stranding on recent CT abdomen pelvis report rule out UTI, UA recommended ->UA negative No signs and or symptoms of infection Hypertensive urgency secondary to illness, cont. to monitor BP Received 1 time dose of hydralazine on admission Iatrogenic adrenal insufficiency (secondary to steroid Rx for misdiagnosed IBD ) on chronic steroid Rx COPD, lung status at baseline HCV status post Rx Cirrhosis as per records, no overt decompensation GERD, stable on regimen Anxiety/mood disorder, at baseline Past tobacco/alcohol abuse DVT prophylaxis. SCDs Re: L GIB Full code Admission and Anticipated Discharge Date Admission Date: June 16, 2022 Subjective 06/18/2022 The patient was seen and examined in medical telemetry unit He has had suspected to have Crohn disease before and received a course of steroid which made her abdominal insufficiency She also has a history of irritable bowel syndrome and cannot remember to have a colonoscopy as an outpatient Occasional constipation and takes Colace for the Ongoing abdominal pain Review of Systems Review of Systems: All systems reviewed and are unremarkable except as noted below Physical Exam Physical Exam: Lying in bed comfortably Constitutional: + ill appearing and average body habitus Eyes: PERRL, conjunctivae normal, anicteric sclerae ENMT: external ear and nose normal, oropharynx normal Neck: trachea midline, no thyromegaly Respiratory: no respiratory distress Auscultation: + diminished lung sounds; no crackles Cardiovascular: Rate/Rhythm: regular rate and regular rhythm; not tachycardic Heart Sounds: normal S1 and normal S2; no murmur Extremities: no edema Gastrointestinal (Abdomen): Inspection/Auscultation: + abdomen distended (Mildly distended) and normal bowel sounds Percussion/Palpation: + abdomen tender (Left lower quadrant without guarding and no rigidity) and abdomen soft Musculoskeletal: No acute arthritis involving any of the joint Neurologic: normal touch/pain/proprioception and moves all extremities; no focal motor deficits Psychiatric: A+Ox3, euthymic affect Lymphatic: no cervical or axillary lymphadenopathy Results & Data Results & Data Vital Signs (Past 12 Hours) Vital Signs Temp Pulse Pulse Resp BP BP Pulse Ox 06/18/22 17:13 83 06/18/22 16:59 186/91 H 06/18/22 15:30 36.8 C 57 L 18 187/116 H 97 06/18/22 16:49 66 193/132 H 98 06/18/22 12:00 36.7 C 55 L 16 160/97 H 97 06/18/22 07:15 53 L 06/18/22 10:00 62 168/98 H 06/18/22 08:06 36.6 C 60 18 175/117 H 99 O2 Del Method 06/18/22 17:13 06/18/22 16:59 06/18/22 15:30 Room Air 06/18/22 16:49 Room Air 06/18/22 12:00 Room Air 06/18/22 07:15 06/18/22 10:00 06/18/22 08:06 Room Air Laboratory Results Short CBC 06/18/22 Range/Units 05:15 WBC 7.37 (4.8-10.8) K/ul Hgb 11.4 L (12.0-16.0) g/dl Hct 30.9 L (37.0-47.0) % Plt Count 269 (130-400) K/uL BMP 06/18/22 05:15 Sodium 140 Potassium 3.2 L Chloride 107 Carbon Dioxide 25 BUN 6 Creatinine 0.64 Glucose 77 Calcium 8.6 Medications Administered Current Inpatient Medications Acetaminophen (Acetaminophen 500 Mg Tab) 500 mg PO Q6H PRN PRN Reason: pain/fever Stop: 07/17/22 06:42 Citalopram Hydrobromide (Citalopram 40 Mg Tab) 40 mg PO DAILY [facility] Stop: 07/17/22 08:59 Last Admin: 06/18/22 08:18 Dose: 40 mg Dextrose (Dextrose 50% 50 Ml Syringe) 25 - 50 ml IV UD PRN; Protocol PRN Reason: Hypoglycemia Protocol Stop: 07/16/22 23:37 Famotidine (Famotidine 40 Mg Tablet) 40 mg PO DAILY SANDI Stop: 07/17/22 08:59 Last Admin: 06/18/22 08:18 Dose: 40 mg Glucagon (Glucagon For Inj 1 Mg Vial) 1 mg SQ UD PRN; Protocol PRN Reason: Hypoglycemia Protocol Stop: 07/16/22 23:37 Glucose (Glucose 10 Tab/Tube) 4 - 8 tab PO UD PRN; Protocol PRN Reason: Hypoglycemia Treatment Stop: 07/16/22 23:37 Glucose (Glucose 40% Gel 15 Gm Tube) 15 - 30 gm PO UD PRN; Protocol PRN Reason: Hypoglycemia Protocol Stop: 07/16/22 23:37 Hydrocortisone (Hydrocortisone 10 Mg Tab) 10 mg PO 0800 SANDI Stop: 07/17/22 07:59 Last Admin: 06/18/22 07:42 Dose: 10 mg Hydrocortisone (Hydrocortisone 10 Mg Tab) 5 mg PO 1200 [facility] Stop: 07/17/22 11:59 Last Admin: 06/18/22 11:11 Dose: 5 mg Promethazine HCl 6.25 mg/ (Sodium Chloride) 50.25 mls @ 201 mls/hr IV Q6H PRN PRN Reason: Nausea And Vomiting Stop: 07/16/22 22:49 Ketorolac Tromethamine (Ketorolac Tromethamine 15 Mg/Ml Vial) 15 mg IV Q6H PRN PRN Reason: Pain Stop: 06/23/22 07:51 Last Admin: 06/18/22 14:35 Dose: 15 mg Metoprolol Tartrate (Metoprolol Tartrate 25 Mg Tab) 12.5 mg PO BID [facility] Stop: 07/18/22 20:59 Metoprolol Tartrate (Metoprolol Tartrate 25 Mg Tab) 12.5 mg PO QAM SANDI Stop: 07/18/22 17:14 Miscellaneous (Carbohydrates For Hypoglycemia ) 15 - 30 gm PO UD PRN PRN Reason: Hypoglycemia Protocol Stop: 07/16/22 23:37 Morphine Sulfate (Morphine Sulfate 2 Mg/Ml Carp) 2 mg IV Q4H PRN PRN Reason: Pain Stop: 06/30/22 22:49 Last Admin: 06/18/22 15:47 Dose: 2 mg Oxycodone HCl (Oxycodone Hcl Ir 5 Mg Tab (Immediate Release)) 5 mg PO Q4H PRN PRN Reason: Pain Stop: 06/30/22 22:49 Last Admin: 06/18/22 16:59 Dose: 5 mg Polyethylene Glycol (Polyethylene (Miralax) 17 Gm Pack) 17 gm PO DAILY PRN PRN Reason: Constipation Stop: 07/16/22 23:35 Quetiapine Fumarate (Quetiapine Fumarate 25 Mg Tablet) 50 mg PO [facility] Stop: 07/17/22 20:59 Last Admin: 06/17/22 21:23 Dose: 50 mg Senna/Docusate Sodium (Docusate Sodium/Senna 50/8.6mg Tab) 1 tab PO QAM [facility] Stop: 07/16/22 23:39 Last Admin: 06/18/22 08:18 Dose: 1 tab Sucralfate (Sucralfate 1 Gm Tab) 1 gm PO TID [facility] Stop: 07/17/22 08:59 Last Admin: 06/18/22 13:27 Dose: 1 gm Temazepam (Temazepam 15 Mg Capsule) 15 mg PO [facility] Stop: 07/17/22 20:59 Last Admin: 06/17/22 21:26 Dose: 15 mg
[2022-06-18] MEDS ORDERED: hydrALAZINE HCL 20 MG/ML VIAL IV STA (19:22)
[2022-06-18] MEDS: PSYLLIUM or GUAR GUM FIBER POWDER PACKET PO SCH (19:44)
--- NOTE | 2022-06-18 19:45 | Communication Note ---
Date of Service: June 18, 2022 Made aware by RN of uncontrolled blood pressure. SBP 200s. Heart rate 50s Patient later with headache and worsening abdominal pain symptoms post bowel movement after laxative administration. EKG as per my interpretation : Rate 50, sinus bradycardia, normal axis, T wave abnormalities inferior leads, LVH AP Hypertensive crisis Probable chronic BP elevation given LVH on EKG Headache and worsening abdominal pain contributory to uncontrolled BP Change metoprolol to losartan given bradycardia CT head, abdomen pelvis
[2022-06-18] MEDS ORDERED: POLYETHYLENE (MIRALAX) 17 GM PACK PO STA (19:47)
[2022-06-18] MEDS ORDERED: LACTULOSE SYRUP 30 GM/45 ML UDP PO STA (19:55)
[2022-06-18] MEDS: traMADol HCL 50 MG TABLET PO PRN (20:14)
[2022-06-18] MEDS: QUEtiapine FUMARATE 25 MG TABLET PO SCH (20:17)
[2022-06-18] MEDS: TEMAZEPAM 15 MG CAPSULE PO SCH (20:17)
[2022-06-18] MEDS ORDERED: LOSARTAN POTASSIUM 25 MG TAB PO SCH (21:00)
[2022-06-18] MEDS ORDERED: MoRPHine SULFATE 2 MG/ML CARP IV STA (21:05)
[2022-06-18] MEDS ORDERED: OPTIRAY 350 100ml IV ONE (21:57)
--- NOTE | 2022-06-18 22:32 | CT Scan Report ---
Exam(s): CT HEAD Without Contrast EXAM: CT Head Without Intravenous Contrast CLINICAL HISTORY: Reason for exam: hoffman. TECHNIQUE: Axial computed tomography images of the head/brain without intravenous contrast. CTDI is 5.53 mGy and DLP is 277.31 mGy-cm. Automated exposure control was utilized for the study. A dose lowering technique was utilized adhering to the principles of ALARA. COMPARISON: No relevant prior studies available. FINDINGS: Brain: Unremarkable. No hemorrhage. No significant white matter disease. No edema. Ventricles: Unremarkable. No ventriculomegaly. Bones/joints: Unremarkable. No acute fracture. Soft tissues: Unremarkable. Sinuses: Unremarkable as visualized. No acute sinusitis. Mastoid air cells: Unremarkable as visualized. No mastoid effusion. IMPRESSION: Normal head/brain CT. Electronically signed by: Carlos Gomez MD 06/18/22 22:31 PM
--- NOTE | 2022-06-18 22:33 | CT Scan Report ---
Exam(s): CT ABDOMEN + PELVIS With Contrast IV Amt: 86 ml optiray EXAM: CT Abdomen and Pelvis With Intravenous Contrast CLINICAL HISTORY: Reason for exam: worsening abd pain. TECHNIQUE: Axial computed tomography images of the abdomen and pelvis with intravenous contrast. CTDI is 5.53 mGy and DLP is 277.31 mGy-cm. Automated exposure control was utilized for the study. A dose lowering technique was utilized adhering to the principles of ALARA. CONTRAST: Patient received 86 ml optiray of IV contrast COMPARISON: No relevant prior studies available. FINDINGS: Lung bases: Unremarkable. No mass. No consolidation. ABDOMEN: Liver: Unremarkable. No mass. Gallbladder and bile ducts: Cholecystectomy with intrahepatic and extrahepatic biliary ductal dilation. Pancreas: Unremarkable. No mass. No ductal dilation. Spleen: Unremarkable. No splenomegaly. Adrenals: Unremarkable. No mass. Kidneys and ureters: Unremarkable. No hydronephrosis or delayed nephrogram. Stomach and bowel: Large volume liquid stool in the colon, consistent with diarrheal disease. No acute diverticulitis. No small bowel obstruction. No free intraperitoneal air. PELVIS: Appendix: No secondary signs of acute appendicitis. Bladder: Decompressed urinary bladder. Reproductive: Unremarkable as visualized. ABDOMEN and PELVIS: Intraperitoneal space: Unremarkable. No free air. No significant fluid collection. Bones/joints: No acute fracture. No dislocation. Soft tissues: Unremarkable. Vasculature: Unremarkable. No abdominal aortic aneurysm. Lymph nodes: Unremarkable. No enlarged lymph nodes. IMPRESSION: 1. Large volume liquid stool in the colon, consistent with diarrheal disease. 2. No acute diverticulitis. No small bowel obstruction. No free intraperitoneal air. 3. Cholecystectomy with intrahepatic and extrahepatic biliary ductal dilation. Electronically signed by: Carlos Gomez MD 06/18/22 22:33 PM
[2022-06-18] MEDS ORDERED: LACTATED RINGER'S 1,000 ML IV ONE (22:42)
[2022-06-19 00:25] LABS: Adenovirus F 40/41 PCR Not Detected (NotDetected); Astrovirus PCR Not Detected (NotDetected); Campylobacter PCR Not Detected (NotDetected); Cryptosporidium PCR Not Detected (NotDetected); Cyclospora cayetanensis PCR Not Detected (NotDetected); Entamoeba histolytica PCR Not Detected (NotDetected); Enteroaggregative E.coli(EAEC) Not Detected (NotDetected); Enteropathogenic E.coli (EPEC) Not Detected (NotDetected); Enterotoxigenic E.coli (ETEC) Not Detected (NotDetected); Giardia lamblia PCR Not Detected (NotDetected); Plesiomonas shigelloides PCR Not Detected (NotDetected); Rotavirus A PCR Not Detected (NotDetected); Salmonella PCR Not Detected (NotDetected); Sapovirus PCR Not Detected (NotDetected); Shiga-like Toxin E.coli (STEC) Not Detected (NotDetected); Shigella/Enteroinvasive E.coli Not Detected (NotDetected); Vibrio cholerae PCR Not Detected (NotDetected); Vibrio species PCR Not Detected (NotDetected); Yersinia enterocolitica PCR Not Detected (NotDetected)
[2022-06-19 00:34] LABS: Norovirus GI/GII PCR DETECTED (NotDetected)
[2022-06-19] MEDS: traMADol HCL 50 MG TABLET PO PRN ×3 (05:56→19:43)
[2022-06-19 06:18] LABS: Basophils # (auto) 0.07 K/uL (0-0.2); Basophils % (auto) 0.7 %; Eosinophils # (auto) 0.31 K/uL (0-0.50); Eosinophils % (auto) 3.1 %; Hematocrit (blood only) 34.1 % (37.0-47.0); Hemoglobin 12.7 g/dl (12.0-16.0); Immature Granulocytes # (auto) 0.04 K/uL (0.01-0.20); Immature Granulocytes % (auto) 0.4 %; Lymphocytes # (auto) 3.63 K/uL (1.2-3.4); Lymphocytes % (auto) 35.8 %; Mean Corpuscular Hemoglobin 31.2 pg (25.0-34.0); Mean Corpuscular Hgb Conc 37.2 g/dL (32.0-36.0); Mean Corpuscular Volume 83.8 fL (80.0-100.0); Mean Platelet Volume 9.6 fL (9.4-12.4); Monocytes % (auto) 6.9 %; Neutrophils # (auto) 5.38 K/uL (1.40-6.50); Neutrophils % (auto) 53.1 %; Platelet Count 334 K/uL (130-400); RDW Coefficient of Variation 12.8 % (11.5-14.5); RDW Standard Deviation 38.8 fL (36.4-46.3); Red Blood Count 4.07 M/uL (4.20-5.40); White Blood Count 10.13 K/ul (4.8-10.8)
[2022-06-19 06:38] LABS: Potassium 3.3 mmol/L (3.5-5.1)
[2022-06-19 06:44] LABS: BUN Creatinine Ratio 3.8 (10-20); Creatinine Clr Calc Pharmacy 63.7 ml/min; Est GFR (African American) 101.3 ml/min; Est GFR (Non-African American) 87.4 ml/min
[2022-06-19] MEDS ORDERED: POTASSIUM CHLORIDE CRTAB 20 MEQ TABCR PO STA (08:47)
--- NOTE | 2022-06-19 08:58 | Gastroenterology Progress Note ---
Date of Service June 19, 2022 Assessment & Plan (1) Colitis: Plan: Prior diarrhea could have been from COVID or tx for COVID. Now, diarrhea/pain, likely secondary to Norovirus. Plan Will add dicyclomine ac, hs which should help her cramping. Would wean off narcotics. Slowly advance diet. Encourage ambulation. Recommend outpatient colonoscopy follow-up in 1 to 2 months. Patient states she would rather get that locally in [place]. GI will sign off. Please notify us if new/worsening GI issues. Admission and Anticipated Discharge Date Admission Date: June 16, 2022 Supervising Physician Co-Signing Physician Notes Norovirus + Pe slightly distended abdomen, today with diarrhea compared to constipation prior. Somewhat confusing gi history including ? history of crohn's diagnosed between [id number] treated with steroids, then diagnosed with ibs, appears to want to follow with Dr. donovan and his group as she lives in [place], has seen many gi providesr. At the current time diarrhea could be from norovirus. Agree with further plan of care as documented. Subjective 51 Female Admitted 06/17 for abd pain. COVID in Mid May. Had been seen by Mod[facility] Almanz[facility] [place] for abd pain and diarrhea and underwent CTs x 3 there - two w suggestion of Colitis. CTAP w IV was done here yesterday w/o mention of colitis. Hx of IBS. Diarrhea x 2 weeks then some constipation. Passed a loose BM yesterday. + for Norovirus. No C-diff or other pathogens. Abd cramping pain continues. Tramadol 25mg w some improvement. Tolerating a clear liquid diet. Review of Systems Review of Systems: ROS: Gen: + weakness from COVID, +weight loss Eyes: No eye redness, or pain, no recent vision changes Resp: No SOB, no cough Cardio: No palpitations/irregular beats, no chest pain GI: + abd pain, diarrhea, now constipation : Denies pain on urination Skin: No jaundice, itching or new rashes Physical Exam Constitutional: WD/WN, vitals as above Eyes: PERRL, conjunctivae normal, anicteric sclerae ENMT: external ear and nose normal, oropharynx normal Neck: trachea midline, no thyromegaly Respiratory: normal respiratory effort, lungs clear to auscultation Cardiovascular: RRR, no murmur, no edema Gastrointestinal (Abdomen): Moderate abd tenderness throughout. Active BS throughout. Soft, non distended. Skin: no rashes, warm and dry Neurologic: PERRL, EOMI, accommodation nl, no face palsy, no dysarthria Psychiatric: A+Ox3, euthymic affect Lymphatic: no cervical or axillary lymphadenopathy Results & Data Vital Signs (Past 12 Hours) Vital Signs Temp Pulse Pulse Pulse Resp BP Pulse Ox 06/19/22 07:58 36.9 C 77 16 168/100 H 98 06/19/22 07:15 76 06/19/22 03:08 36.7 C 60 18 156/98 H 92 06/18/22 21:18 70 06/18/22 23:19 36.8 C 60 16 125/84 97 O2 Del Method 06/19/22 07:58 Room Air 06/19/22 07:15 06/19/22 03:08 Room Air 06/18/22 21:18 06/18/22 23:19 Room Air Laboratory Results WBC 10, Hb 12, Hct 34, Plts 334, Na 141, K 3.3, Cl 107, CO2 27, BUN 3, Cr 0.78, glucose 81. T Bili Diagnostic Findings CTAP w IV 06/18/22: 1. Large volume liquid stool in the colon, consistent with diarrheal disease. 2. No acute diverticulitis. No small bowel obstruction. No free intraperitoneal air. 3. Cholecystectomy with intrahepatic and extrahepatic biliary ductal dilation.
[2022-06-19] MEDS ORDERED: METOPROLOL TARTRATE 25 MG TAB PO SCH (09:00)
[2022-06-19] MEDS: SUCRALFATE 1 GM TAB PO SCH ×3 (10:08→19:42)
[2022-06-19] MEDS: FAMOTIDINE 40 MG TABLET PO SCH (10:09)
[2022-06-19] MEDS: DOCUSATE SODIUM/SENNA 50/8.6MG TAB PO SCH ×2 (10:09→19:40)
[2022-06-19] MEDS: HYDROCORTISONE 10 MG TAB PO SCH ×2 (10:09→13:26)
[2022-06-19] MEDS: CITALOPRAM 40 MG TAB PO SCH (10:09)
[2022-06-19] MEDS: PSYLLIUM or GUAR GUM FIBER POWDER PACKET PO SCH (10:10)
[2022-06-19] MEDS: POTASSIUM CHLORIDE / WTR 10 MEQ/100 ML PLCT IV SCH ×2 (10:10→11:08)
--- NOTE | 2022-06-19 10:26 | XRay Report ---
XR KUB/Abdomen 1 view CLINICAL HISTORY: constipation, r/o colon distention TECHNIQUE: 1 view of the abdomen was obtained. Comparison: None available at the time of this dictation. FINDINGS: Cholecystomy clips are seen in the right upper quadrant. The osseous structures are grossly unremarka ble. The bowel gas pattern is nonobstructive. Small stool burden is seen. IMPRESSION: No significant stool burden. ACT 112: Negative or not required by law. Electronically signed by: Lewis Nava M.D. 06/19/2022 10:25 AM
[2022-06-19] MEDS: DICYCLOMINE HCL 10 MG CAP PO SCH ×3 (11:12→19:40)
[2022-06-19] MEDS: KETOROLAC TROMETHAMINE 15 MG/ML VIAL IV PRN ×2 (15:38→22:27)
--- NOTE | 2022-06-19 17:13 | Hospitalist Progress Note ---
Date of Service June 19, 2022 Assessment & Plan (1) Colitis: Plan: To rule out inflammatory bowel disease Presenting as LGIB at [facility] ER. History IB Remote steroid administration for presumed Crohn's disease/IBD No bowel movement since ER stay the last 2 days as per patient. Last BM AM stool studies ordered - pending collection GI consult Re: Colitis on CT Per GI - no plan for colonoscopy at this time, cont. to observe Will give Metamucil tonight Analgesia-less use of narcotics Recent COVID-19 illness status post Paxlovid (3 weeks ago) COVID-19 isolation precautions as per current [facility] policy. Anemia secondary to above Hemoglobin remains stable at 11.4 Clinically not yet ready to be discharged-complains today of pain with nausea Clear liquids has been started and will advance as tolerated Likely discharge in a day or 2 when she can tolerate solid food without significant symptoms GI will get endoscopy as an outpatient CAD (coronary artery disease): History NSTEMI 2011 s/p MARQUISE to [facility]. No acute cardiac issues Perinephric stranding on recent CT abdomen pelvis report rule out UTI, UA recommended ->UA negative No signs and or symptoms of infection Hypertensive urgency secondary to illness, cont. to monitor BP Received 1 time dose of hydralazine on admission Losartan has been increased to 50 mg once a day from tomorrow We will continue with hydralazine as needed for BP control Elivated Blood pressure is secondary to pain Iatrogenic adrenal insufficiency (secondary to steroid Rx for misdiagnosed IBD ) on chronic steroid Rx COPD, lung status at baseline HCV status post Rx Cirrhosis as per records, no overt decompensation GERD, stable on regimen Anxiety/mood disorder, at baseline Past tobacco/alcohol abuse DVT prophylaxis. SCDs Re: L GIB Full code Admission and Anticipated Discharge Date Admission Date: June 16, 2022 Subjective 06/18/2022 The patient was seen and examined in medical telemetry unit He has had suspected to have Crohn disease before and received a course of steroid which made her abdominal insufficiency She also has a history of irritable bowel syndrome and cannot remember to have a colonoscopy as an outpatient Occasional constipation and takes Colace for the Ongoing abdominal pain 06/19/2022 The patient was seen and examined in medical telemetry unit She complains to have ongoing abdominal pain and nausea Her blood pressure remains elevated Review of Systems Review of Systems: All systems reviewed and are unremarkable except as noted below Physical Exam Physical Exam: Lying in bed comfortably Constitutional: + ill appearing and average body habitus Eyes: PERRL, conjunctivae normal, anicteric sclerae ENMT: external ear and nose normal, oropharynx normal Neck: trachea midline, no thyromegaly Respiratory: no respiratory distress Auscultation: + diminished lung sounds; no crackles Cardiovascular: Rate/Rhythm: regular rate and regular rhythm; not tachycardic Heart Sounds: normal S1 and normal S2; no murmur Extremities: no edema Gastrointestinal (Abdomen): Inspection/Auscultation: + abdomen distended (Mildly distended) and normal bowel sounds Percussion/Palpation: + abdomen tender (Left lower quadrant without guarding and no rigidity) and abdomen soft Neurologic: normal touch/pain/proprioception and moves all extremities; no focal motor deficits Psychiatric: A+Ox3, euthymic affect Lymphatic: no cervical or axillary lymphadenopathy Results & Data Results & Data Vital Signs (Past 12 Hours) Vital Signs Temp Pulse Pulse Resp BP Pulse Ox O2 Del Method 06/19/22 15:07 75 06/19/22 15:05 36.7 C 65 18 165/103 H 97 Room Air 06/19/22 11:01 36.7 C 67 15 159/102 H 100 Room Air 06/19/22 07:58 36.9 C 77 16 168/100 H 98 Room Air 06/19/22 07:15 76 Laboratory Results Short CBC 06/19/22 Range/Units 05:28 WBC 10.13 (4.8-10.8) K/ul Hgb 12.7 (12.0-16.0) g/dl Hct 34.1 L (37.0-47.0) % Plt Count 334 (130-400) K/uL [facility] 06/19/22 05:28 Sodium 141 Potassium 3.3 L Chloride 107 Carbon Dioxide 27 BUN 3 L Creatinine 0.78 Glucose 81 Calcium 9.0 Medications Administered Current Inpatient Medications Acetaminophen (Acetaminophen 500 Mg Tab) 500 mg PO Q6H PRN PRN Reason: pain/fever Stop: 07/17/22 06:42 Citalopram Hydrobromide (Citalopram 40 Mg Tab) 40 mg PO DAILY [facility] Stop: 07/17/22 08:59 Last Admin: 06/19/22 10:09 Dose: 40 mg Dextrose (Dextrose 50% 50 Ml Syringe) 25 - 50 ml IV UD PRN; Protocol PRN Reason: Hypoglycemia Protocol Stop: 07/16/22 23:37 Dicyclomine HCl (Dicyclomine Hcl 10 Mg Cap) 10 mg PO ACHS SANDI Stop: 07/19/22 11:29 Last Admin: 06/19/22 15:38 Dose: 10 mg Famotidine (Famotidine 40 Mg Tablet) 40 mg PO DAILY [facility] Stop: 07/17/22 08:59 Last Admin: 06/19/22 10:09 Dose: 40 mg Glucagon (Glucagon For Inj 1 Mg Vial) 1 mg SQ UD PRN; Protocol PRN Reason: Hypoglycemia Protocol Stop: 07/16/22 23:37 Glucose (Glucose 10 Tab/Tube) 4 - 8 tab PO UD PRN; Protocol PRN Reason: Hypoglycemia Treatment Stop: 07/16/22 23:37 Glucose (Glucose 40% Gel 15 Gm Tube) 15 - 30 gm PO UD PRN; Protocol PRN Reason: Hypoglycemia Protocol Stop: 07/16/22 23:37 Hydralazine HCl (Hydralazine Hcl 20 Mg/Ml Vial) 10 mg IV Q6H PRN PRN Reason: Blood Pressure - High Stop: 07/19/22 17:12 Hydrocortisone (Hydrocortisone 10 Mg Tab) 10 mg PO 0800 SANDI Stop: 07/17/22 07:59 Last Admin: 06/19/22 10:09 Dose: 10 mg Hydrocortisone (Hydrocortisone 10 Mg Tab) 5 mg PO 1200 SANDI Stop: 07/17/22 11:59 Last Admin: 06/19/22 13:26 Dose: 5 mg Promethazine HCl 6.25 mg/ (Sodium Chloride) 50.25 mls @ 201 mls/hr IV Q6H PRN PRN Reason: Nausea And Vomiting Stop: 07/16/22 22:49 Lactated Ringer's (Lr) 1,000 mls @ 50 mls/hr IV .Q20H ONE Stop: 06/19/22 18:41 Last Admin: 06/18/22 23:26 Dose: 50 mls/hr Ketorolac Tromethamine (Ketorolac Tromethamine 15 Mg/Ml Vial) 15 mg IV Q6H PRN PRN Reason: Pain Stop: 06/24/22 14:48 Last Admin: 06/19/22 15:38 Dose: 15 mg Losartan Potassium (Losartan Potassium 50 Mg Tab) 50 mg PO HS SANDI Stop: 07/19/22 20:59 Miscellaneous (Carbohydrates For Hypoglycemia ) 15 - 30 gm PO UD PRN PRN Reason: Hypoglycemia Protocol Stop: 07/16/22 23:37 Morphine Sulfate (Morphine Sulfate 2 Mg/Ml Carp) 2 mg IV Q8H PRN PRN Reason: Pain Stop: 06/30/22 22:49 Polyethylene Glycol (Polyethylene (Miralax) 17 Gm Pack) 17 gm PO DAILY PRN PRN Reason: Constipation Stop: 07/16/22 23:35 Psyllium Hydrophilic Mucilloid (Psyllium Or Guar Gum Fiber Powder Packet) 1 pkt PO QAM SANDI Stop: 07/18/22 18:14 Last Admin: 06/19/22 10:10 Dose: 1 pkt Quetiapine Fumarate (Quetiapine Fumarate 25 Mg Tablet) 50 mg PO HS [facility] Stop: 07/17/22 20:59 Last Admin: 06/18/22 20:17 Dose: 50 mg Senna/Docusate Sodium (Docusate Sodium/Senna 50/8.6mg Tab) 1 tab PO BID SANDI Stop: 07/18/22 20:59 Last Admin: 06/19/22 10:09 Dose: 1 tab Sucralfate (Sucralfate 1 Gm Tab) 1 gm PO TID SANDI Stop: 07/17/22 08:59 Last Admin: 06/19/22 13:26 Dose: 1 gm Temazepam (Temazepam 15 Mg Capsule) 15 mg PO HS SANDI Stop: 07/17/22 20:59 Last Admin: 06/18/22 20:17 Dose: 15 mg Tramadol HCl (Tramadol Hcl 50 Mg Tablet) 25 mg PO Q4H PRN PRN Reason: Pain Stop: 07/18/22 19:51 Last Admin: 06/19/22 10:13 Dose: 25 mg
[2022-06-19] MEDS: QUEtiapine FUMARATE 25 MG TABLET PO SCH (19:42)
[2022-06-19] MEDS: hydrALAZINE HCL 20 MG/ML VIAL IV PRN (19:42)
[2022-06-19] MEDS: LOSARTAN POTASSIUM 50 MG TAB PO SCH (21:12)
[2022-06-19] MEDS: TEMAZEPAM 15 MG CAPSULE PO SCH (21:12)
[2022-06-20] MEDS: MoRPHine SULFATE 2 MG/ML CARP IV PRN ×2 (03:21→19:19)
--- NOTE | 2022-06-20 06:20 | Electrocardiogram Report ---
Test Reason : Blood Pressure : / mmHG Vent. Rate : 051 BPM Atrial Rate : 051 BPM P-R Int : 144 ms QRS Dur : 080 ms QT Int : 494 ms P-R-T Axes : -04 005 002 degrees QTc Int : 455 ms Sinus bradycardia Minimal voltage criteria for LVH, may be normal variant Borderline ECG No previous ECGs available Confirmed by Robinson Villagran ([id number]) on 06/20/2022 6:20:26 AM Referred By: Sandro Peña Confirmed By:Robinson Villagran
[2022-06-20] MEDS: CITALOPRAM 40 MG TAB PO SCH (08:32)
[2022-06-20] MEDS: FAMOTIDINE 40 MG TABLET PO SCH (08:32)
[2022-06-20] MEDS: SUCRALFATE 1 GM TAB PO SCH ×3 (08:32→19:18)
[2022-06-20] MEDS: DICYCLOMINE HCL 10 MG CAP PO SCH ×4 (08:32→19:19)
[2022-06-20] MEDS: HYDROCORTISONE 10 MG TAB PO SCH ×2 (08:32→12:51)
[2022-06-20] MEDS: DOCUSATE SODIUM/SENNA 50/8.6MG TAB PO SCH ×2 (08:32→19:10)
[2022-06-20] MEDS: PSYLLIUM or GUAR GUM FIBER POWDER PACKET PO SCH (08:32)
[2022-06-20 08:45] LABS: BUN Creatinine Ratio 4.5 (10-20); Calcium 9.1 mg/dl (8.6-10.3); Creatinine Clr Calc Pharmacy 55.8 ml/min; Est GFR (African American) 86.4 ml/min; Est GFR (Non-African American) 74.5 ml/min; Potassium 3.7 mmol/L (3.5-5.1)
--- NOTE | 2022-06-20 15:34 | Hospitalist Progress Note ---
Date of Service June 20, 2022 Assessment & Plan (1) Colitis: Plan: To rule out inflammatory bowel disease Presenting as LGIB at [facility] ER. History IB Remote steroid administration for presumed Crohn's disease/IBD No bowel movement since ER stay the last 2 days as per patient. Last BM AM stool studies ordered - pending collection GI consult Re: Colitis on CT Per GI - no plan for colonoscopy at this time, cont. to observe Will give Metamucil tonight Analgesia-less use of narcotics Recent COVID-19 illness status post Paxlovid (3 weeks ago) COVID-19 isolation precautions as per current [facility] policy. Anemia secondary to above Hemoglobin remains stable at 11.4 Clinically not yet ready to be discharged-complains today of pain with nausea Clear liquids has been started and will advance as tolerated Likely discharge in a day or 2 when she can tolerate solid food without significant symptoms GI will get endoscopy as an outpatient Still complains to have some abdominal pain with nausea and diarrhea seems to be improving Will advance diet as tolerated and advised to have more movements especially getting out of bed and start walking around If she feels better she will be discharged home tomorrow CAD (coronary artery disease): History NSTEMI 2012 s/p MARQUISE to [facility]. No acute cardiac issues Perinephric stranding on recent CT abdomen pelvis report rule out UTI, UA recommended ->UA negative No signs and or symptoms of infection Hypertensive urgency secondary to illness, cont. to monitor BP Received 1 time dose of hydralazine on admission Losartan has been increased to 50 mg once a day from tomorrow We will continue with hydralazine as needed for BP control Elevated Blood pressure is secondary to pain Blood pressure seems to be on the upper side but has been improving Iatrogenic adrenal insufficiency (secondary to steroid Rx for misdiagnosed IBD ) on chronic steroid Rx COPD, lung status at baseline HCV status post Rx Cirrhosis as per records, no overt decompensation GERD, stable on regimen Anxiety/mood disorder, at baseline Past tobacco/alcohol abuse DVT prophylaxis. SCDs Re: L GIB Full code Admission and Anticipated Discharge Date Admission Date: June 16, 2022 Subjective 06/18/2022 The patient was seen and examined in medical telemetry unit He has had suspected to have Crohn disease before and received a course of steroid which made her abdominal insufficiency She also has a history of irritable bowel syndrome and cannot remember to have a colonoscopy as an outpatient Occasional constipation and takes Colace for the Ongoing abdominal pain 06/19/2022 The patient was seen and examined in medical telemetry unit She complains to have ongoing abdominal pain and nausea Her blood pressure remains elevated 06/20/2022 The patient was seen and examined in medical telemetry unit She has been complaining of diarrhea and abdominal pain She has not tried any advance diet yet Not yet ready to be discharged Review of Systems Review of Systems: All systems reviewed and are unremarkable except as noted below Physical Exam Physical Exam: Lying in bed comfortably Constitutional: + ill appearing and average body habitus Eyes: PERRL, conjunctivae normal, anicteric sclerae ENMT: external ear and nose normal, oropharynx normal Neck: trachea midline, no thyromegaly Respiratory: no respiratory distress Auscultation: + diminished lung sounds; no crackles Cardiovascular: Rate/Rhythm: regular rate and regular rhythm; not tachycardic Heart Sounds: normal S1 and normal S2; no murmur Extremities: no edema Gastrointestinal (Abdomen): Inspection/Auscultation: + abdomen distended (Mildly distended) and normal bowel sounds Percussion/Palpation: + abdomen tender (Left lower quadrant without guarding and no rigidity) and abdomen soft Musculoskeletal: No acute arthritis involving any joint Neurologic: normal touch/pain/proprioception and moves all extremities; no focal motor deficits Psychiatric: A+Ox3, euthymic affect Lymphatic: no cervical or axillary lymphadenopathy Results & Data Results & Data Vital Signs (Past 12 Hours) Vital Signs Temp Pulse Pulse Resp BP Pulse Ox O2 Del Method 06/20/22 14:59 36.7 C 66 16 168/101 H 98 Room Air 06/20/22 11:24 36.9 C 69 18 153/93 H 98 Room Air 06/20/22 10:30 59 L 06/20/22 07:54 36.8 C 58 L 18 154/93 H 98 Room Air 06/20/22 04:08 36.8 C 66 18 122/82 98 Room Air Laboratory Results [facility] 06/20/22 07:28 Sodium 139 Potassium 3.7 Chloride 105 Carbon Dioxide 29 BUN 4 L Creatinine 0.89 Glucose 82 Calcium 9.1 Medications Administered Current Inpatient Medications Acetaminophen (Acetaminophen 500 Mg Tab) 500 mg PO Q6H PRN PRN Reason: pain/fever Stop: 07/17/22 06:42 Citalopram Hydrobromide (Citalopram 40 Mg Tab) 40 mg PO DAILY [facility]I Stop: 07/17/22 08:59 Last Admin: 06/20/22 08:32 Dose: 40 mg Dextrose (Dextrose 50% 50 Ml Syringe) 25 - 50 ml IV UD PRN; Protocol PRN Reason: Hypoglycemia Protocol Stop: 07/16/22 23:37 Dicyclomine HCl (Dicyclomine Hcl 10 Mg Cap) 10 mg PO ACHS SANDI Stop: 07/19/22 11:29 Last Admin: 06/20/22 12:51 Dose: 10 mg Famotidine (Famotidine 40 Mg Tablet) 40 mg PO DAILY [facility] Stop: 07/17/22 08:59 Last Admin: 06/20/22 08:32 Dose: 40 mg Glucagon (Glucagon For Inj 1 Mg Vial) 1 mg SQ UD PRN; Protocol PRN Reason: Hypoglycemia Protocol Stop: 07/16/22 23:37 Glucose (Glucose 10 Tab/Tube) 4 - 8 tab PO UD PRN; Protocol PRN Reason: Hypoglycemia Treatment Stop: 07/16/22 23:37 Glucose (Glucose 40% Gel 15 Gm Tube) 15 - 30 gm PO UD PRN; Protocol PRN Reason: Hypoglycemia Protocol Stop: 07/16/22 23:37 Hydralazine HCl (Hydralazine Hcl 20 Mg/Ml Vial) 10 mg IV Q6H PRN PRN Reason: Blood Pressure - High Stop: 07/19/22 17:12 Last Admin: 06/19/22 19:42 Dose: 10 mg Hydrocortisone (Hydrocortisone 10 Mg Tab) 10 mg PO 0800 SANDI Stop: 07/17/22 07:59 Last Admin: 06/20/22 08:32 Dose: 10 mg Hydrocortisone (Hydrocortisone 10 Mg Tab) 5 mg PO 1200 [facility] Stop: 07/17/22 11:59 Last Admin: 06/20/22 12:51 Dose: 5 mg Promethazine HCl 6.25 mg/ (Sodium Chloride) 50.25 mls @ 201 mls/hr IV Q6H PRN PRN Reason: Nausea And Vomiting Stop: 07/16/22 22:49 Ketorolac Tromethamine (Ketorolac Tromethamine 15 Mg/Ml Vial) 15 mg IV Q6H PRN PRN Reason: Pain Stop: 06/24/22 14:48 Last Admin: 04/11/23 22:27 Dose: 15 mg Losartan Potassium (Losartan Potassium 50 Mg Tab) 50 mg PO HS [facility] Stop: 07/19/22 20:59 Last Admin: 06/19/22 21:12 Dose: 50 mg Miscellaneous (Carbohydrates For Hypoglycemia ) 15 - 30 gm PO UD PRN PRN Reason: Hypoglycemia Protocol Stop: 07/16/22 23:37 Morphine Sulfate (Morphine Sulfate 2 Mg/Ml Carp) 2 mg IV Q8H PRN PRN Reason: Pain Stop: 06/30/22 22:49 Last Admin: 06/20/22 03:21 Dose: 2 mg Polyethylene Glycol (Polyethylene (Miralax) 17 Gm Pack) 17 gm PO DAILY PRN PRN Reason: Constipation Stop: 07/16/22 23:35 Psyllium Hydrophilic Mucilloid (Psyllium Or Guar Gum Fiber Powder Packet) 1 pkt PO QAM [facility] Stop: 07/18/22 18:14 Last Admin: 06/20/22 08:32 Dose: 1 pkt Quetiapine Fumarate (Quetiapine Fumarate 25 Mg Tablet) 50 mg PO [facility] Stop: 07/17/22 20:59 Last Admin: 06/19/22 19:42 Dose: 50 mg Senna/Docusate Sodium (Docusate Sodium/Senna 50/8.6mg Tab) 1 tab PO BID [facility] Stop: 07/18/22 20:59 Last Admin: 06/20/22 08:32 Dose: Not Given Sucralfate (Sucralfate 1 Gm Tab) 1 gm PO TID [facility] Stop: 07/17/22 08:59 Last Admin: 06/20/22 13:34 Dose: 1 gm Temazepam (Temazepam 15 Mg Capsule) 15 mg PO [facility] Stop: 07/17/22 20:59 Last Admin: 06/19/22 21:12 Dose: 15 mg Tramadol HCl (Tramadol Hcl 50 Mg Tablet) 25 mg PO Q4H PRN PRN Reason: Pain Stop: 07/18/22 19:51 Last Admin: 06/19/22 19:43 Dose: 25 mg
[2022-06-20] MEDS: QUEtiapine FUMARATE 25 MG TABLET PO SCH (19:18)
[2022-06-20] MEDS: LOSARTAN POTASSIUM 50 MG TAB PO SCH (19:19)
[2022-06-20] MEDS: TEMAZEPAM 15 MG CAPSULE PO SCH (19:19)
[2022-06-21] MEDS: KETOROLAC TROMETHAMINE 15 MG/ML VIAL IV PRN ×2 (00:04→19:17)
[2022-06-21 06:11] LABS: Hematocrit (blood only) 32.9 % (37.0-47.0); Hemoglobin 12.4 g/dl (12.0-16.0); Mean Corpuscular Hemoglobin 31.4 pg (25.0-34.0); Mean Corpuscular Hgb Conc 37.7 g/dL (32.0-36.0); Mean Corpuscular Volume 83.3 fL (80.0-100.0); Mean Platelet Volume 9.5 fL (9.4-12.4); Platelet Count 296 K/uL (130-400); RDW Coefficient of Variation 12.9 % (11.5-14.5); RDW Standard Deviation 38.8 fL (36.4-46.3); Red Blood Count 3.95 M/uL (4.20-5.40); White Blood Count 8.33 K/ul (4.8-10.8)
[2022-06-21 06:15] LABS: BUN Creatinine Ratio 4.5 (10-20); Creatinine Clr Calc Pharmacy 55.8 ml/min; Est GFR (African American) 86.4 ml/min; Est GFR (Non-African American) 74.5 ml/min; Potassium 3.6 mmol/L (3.5-5.1)
[2022-06-21 07:11] LABS: Basophils # (auto) 0.06 K/uL (0-0.2); Basophils % (auto) 0.7 %; Eosinophils # (auto) 0.36 K/uL (0-0.50); Eosinophils % (auto) 4.3 %; Immature Granulocytes # (auto) 0.02 K/uL (0.01-0.20); Immature Granulocytes % (auto) 0.2 %; Lymphocytes # (auto) 4.24 K/uL (1.2-3.4); Lymphocytes % (auto) 50.9 %; Monocytes % (auto) 8.4 %; Neutrophils # (auto) 2.95 K/uL (1.40-6.50); Neutrophils % (auto) 35.5 %
[2022-06-21] MEDS: DICYCLOMINE HCL 10 MG CAP PO SCH ×4 (08:05→20:34)
[2022-06-21] MEDS: HYDROCORTISONE 10 MG TAB PO SCH ×2 (08:06→11:22)
[2022-06-21] MEDS: FAMOTIDINE 40 MG TABLET PO SCH (08:07)
[2022-06-21] MEDS: PSYLLIUM or GUAR GUM FIBER POWDER PACKET PO SCH (08:07)
[2022-06-21] MEDS: SUCRALFATE 1 GM TAB PO SCH ×3 (08:07→20:34)
[2022-06-21] MEDS: CITALOPRAM 40 MG TAB PO SCH (08:07)
[2022-06-21] MEDS: DOCUSATE SODIUM/SENNA 50/8.6MG TAB PO SCH ×2 (08:08→20:26)
--- NOTE | 2022-06-21 15:46 | CT Scan Report ---
ABDOMEN AND PELVIS CT WITHOUT CONTRAST CT DOSE: 240.63 mGy.cm HISTORY: Generalized abdominal pain. TECHNIQUE: Multiaxial CT images of the abdomen and pelvis were performed without contrast. A dose lo wering technique was utilized adhering to the principles of ALARA. COMPARISON STUDY: Abdomen and pelvis CT 06/18/2022. Outside hospital chest CT 05/23/2016. FINDINGS: Stable subcentimeter left lower lobe pulmonary nodules measure up to 5 mm. These are consid ered to be benign given the long-term stability. No pneumoperitoneum. No pneumatosis. 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 No suspicious lytic or blastic osseous lesions. Prior cholecystectomy. The unenhanced liver, spleen, adrenal glands, pancreas, and kidneys appear unr emarkable. No hydronephrosis. Normal caliber abdominal aorta. No retroperitoneal lymphadenopathy. No pelvic lymphadenopathy. Prior hysterectomy. The bladder is unremarkable. Suboptimal evaluation for natan wel pathology due to the lack of intravenous and oral contrast. There has been interval improvement i n the distended and fluid-filled loops of large and small bowel seen on the prior study. No dilated l oops of bowel or a transition point to suggest an obstruction. No definite bowel wall thickening. The visualized appendix is unremarkable. IMPRESSION: 1. Interval improvement/resolution of the distended and fluid-filled loops of large and small bowel c ompared to the prior study. No bowel wall thickening or obstruction identified at this time. 2. The visualized appendix is unremarkable. 3. No hydronephrosis. 4. Cholecystectomy. ACT 112: Negative or not required by law. Electronically signed by: Eulalio Casanova M.D. 06/21/2022 3:45 PM
--- NOTE | 2022-06-21 16:42 | Hospitalist Progress Note ---
Date of Service June 21, 2022 Assessment & Plan (1) Colitis: Plan: To rule out inflammatory bowel disease Presenting as LGIB at [facility] ER. History IB Remote steroid administration for presumed Crohn's disease/IBD No bowel movement since ER stay the last 2 days as per patient. Last BM AM stool studies ordered - pending collection GI consult Re: Colitis on CT Per GI - no plan for colonoscopy at this time, cont. to observe Will give Metamucil tonight Analgesia-less use of narcotics Recent COVID-19 illness status post Paxlovid (3 weeks ago) COVID-19 isolation precautions as per current [facility] policy. Anemia secondary to above Hemoglobin remains stable at 11.4 Clinically not yet ready to be discharged-complains today of pain with nausea Clear liquids has been started and will advance as tolerated Likely discharge in a day or 2 when she can tolerate solid food without significant symptoms GI will get endoscopy as an outpatient Still complains to have some abdominal pain with nausea and diarrhea seems to be improving Feels bloated but CT scan of the abdomen pelvis showed resolved previous findings and no obstruction Her diet was advanced as tolerated and she will be discharged home tomorrow CAD (coronary artery disease): History NSTEMI 2012 s/p MARQUISE to [facility]. No acute cardiac issues Perinephric stranding on recent CT abdomen pelvis report rule out UTI, UA recommended ->UA negative No signs and or symptoms of infection Hypertensive urgency secondary to illness, cont. to monitor BP Received 1 time dose of hydralazine on admission Losartan has been increased to 50 mg once a day from tomorrow We will continue with hydralazine as needed for BP control Elevated Blood pressure is secondary to pain Blood pressure seems to be on the upper side but has been improving Blood pressure remains on the upper side at 177/99 We will observe Iatrogenic adrenal insufficiency (secondary to steroid Rx for misdiagnosed IBD ) on chronic steroid Rx COPD, lung status at baseline HCV status post Rx Cirrhosis as per records, no overt decompensation GERD, stable on regimen Anxiety/mood disorder, at baseline Past tobacco/alcohol abuse DVT prophylaxis. SCDs Re: L GIB Full code Admission and Anticipated Discharge Date Admission Date: June 16, 2022 Subjective 06/18/2022 The patient was seen and examined in medical telemetry unit He has had suspected to have Crohn disease before and received a course of steroid which made her abdominal insufficiency She also has a history of irritable bowel syndrome and cannot remember to have a colonoscopy as an outpatient Occasional constipation and takes Colace for the Ongoing abdominal pain 06/19/2022 The patient was seen and examined in medical telemetry unit She complains to have ongoing abdominal pain and nausea Her blood pressure remains elevated 06/20/2022 The patient was seen and examined in medical telemetry unit She has been complaining of diarrhea and abdominal pain She has not tried any advance diet yet Not yet ready to be discharged 06/21/2022 Patient was seen and examined in medical telemetry unit She has been complaining of abdominal pain but less so in the diarrhea has been improving She has not tried any advance diet which will be given today Likely to discharge tomorrow Review of Systems Review of Systems: All systems reviewed and are unremarkable except as noted below Physical Exam Physical Exam: Lying in bed comfortably Constitutional: + ill appearing and average body habitus Eyes: PERRL, conjunctivae normal, anicteric sclerae ENMT: external ear and nose normal, oropharynx normal Neck: trachea midline, no thyromegaly Respiratory: no respiratory distress Auscultation: + diminished lung sounds; no crackles Cardiovascular: Rate/Rhythm: regular rate and regular rhythm; not tachycardic Heart Sounds: normal S1 and normal S2; no murmur Extremities: no edema Gastrointestinal (Abdomen): Inspection/Auscultation: + abdomen distended (Mildly distended) and normal bowel sounds Percussion/Palpation: + abdomen tender (Left lower quadrant without guarding and no rigidity) and abdomen soft Neurologic: normal touch/pain/proprioception and moves all extremities; no focal motor deficits Psychiatric: A+Ox3, euthymic affect Lymphatic: no cervical or axillary lymphadenopathy Results & Data Results & Data Vital Signs (Past 12 Hours) Vital Signs Temp Pulse Pulse Resp BP Pulse Ox O2 Del Method 06/21/22 15:05 60 06/21/22 14:41 36.7 C 63 16 177/99 H 99 Room Air 06/21/22 11:22 36.7 C 64 16 162/90 H 99 Room Air 06/21/22 08:38 58 L 06/21/22 07:57 36.8 C 71 16 143/94 H 100 Room Air Laboratory Results Short CBC 06/21/22 Range/Units 05:43 WBC 8.33 (4.8-10.8) K/ul Hgb 12.4 (12.0-16.0) g/dl Hct 32.9 L (37.0-47.0) % Plt Count 296 (130-400) K/uL [facility] 06/21/22 05:43 Sodium 138 Potassium 3.6 Chloride 105 Carbon Dioxide 27 BUN 4 L Creatinine 0.89 Glucose 82 Calcium 9.0 Medications Administered Current Inpatient Medications Acetaminophen (Acetaminophen 500 Mg Tab) 500 mg PO Q6H PRN PRN Reason: pain/fever Stop: 07/17/22 06:42 Citalopram Hydrobromide (Citalopram 40 Mg Tab) 40 mg PO DAILY SANDI Stop: 07/17/22 08:59 Last Admin: 06/21/22 08:07 Dose: 40 mg Dextrose (Dextrose 50% 50 Ml Syringe) 25 - 50 ml IV UD PRN; Protocol PRN Reason: Hypoglycemia Protocol Stop: 07/16/22 23:37 Dicyclomine HCl (Dicyclomine Hcl 10 Mg Cap) 10 mg PO ACHS [facility]I Stop: 07/19/22 11:29 Last Admin: 06/21/22 11:21 Dose: 10 mg Famotidine (Famotidine 40 Mg Tablet) 40 mg PO DAILY SANDI Stop: 07/17/22 08:59 Last Admin: 06/21/22 08:07 Dose: 40 mg Glucagon (Glucagon For Inj 1 Mg Vial) 1 mg SQ UD PRN; Protocol PRN Reason: Hypoglycemia Protocol Stop: 07/16/22 23:37 Glucose (Glucose 10 Tab/Tube) 4 - 8 tab PO UD PRN; Protocol PRN Reason: Hypoglycemia Treatment Stop: 07/16/22 23:37 Glucose (Glucose 40% Gel 15 Gm Tube) 15 - 30 gm PO UD PRN; Protocol PRN Reason: Hypoglycemia Protocol Stop: 07/16/22 23:37 Hydralazine HCl (Hydralazine Hcl 20 Mg/Ml Vial) 10 mg IV Q6H PRN PRN Reason: Blood Pressure - High Stop: 07/19/22 17:12 Last Admin: 06/19/22 19:42 Dose: 10 mg Hydrocortisone (Hydrocortisone 10 Mg Tab) 10 mg PO 0800 [facility]I Stop: 07/17/22 07:59 Last Admin: 06/21/22 08:06 Dose: 10 mg Hydrocortisone (Hydrocortisone 10 Mg Tab) 5 mg PO 1200 [facility]I Stop: 07/17/22 11:59 Last Admin: 04/13/23 11:22 Dose: 5 mg Promethazine HCl 6.25 mg/ (Sodium Chloride) 50.25 mls @ 201 mls/hr IV Q6H PRN PRN Reason: Nausea And Vomiting Stop: 07/16/22 22:49 Ketorolac Tromethamine (Ketorolac Tromethamine 15 Mg/Ml Vial) 15 mg IV Q6H PRN PRN Reason: Pain Stop: 06/24/22 14:48 Last Admin: 06/21/22 00:04 Dose: 15 mg Losartan Potassium (Losartan Potassium 50 Mg Tab) 50 mg PO HS SANDI Stop: 07/19/22 20:59 Last Admin: 06/20/22 19:19 Dose: 50 mg Miscellaneous (Carbohydrates For Hypoglycemia ) 15 - 30 gm PO UD PRN PRN Reason: Hypoglycemia Protocol Stop: 07/16/22 23:37 Morphine Sulfate (Morphine Sulfate 2 Mg/Ml Carp) 2 mg IV Q8H PRN PRN Reason: Pain Stop: 06/30/22 22:49 Last Admin: 06/20/22 19:19 Dose: 2 mg Polyethylene Glycol (Polyethylene (Miralax) 17 Gm Pack) 17 gm PO DAILY PRN PRN Reason: Constipation Stop: 07/16/22 23:35 Psyllium Hydrophilic Mucilloid (Psyllium Or Guar Gum Fiber Powder Packet) 1 pkt PO QAM [facility] Stop: 07/18/22 18:14 Last Admin: 06/21/22 08:07 Dose: 1 pkt Quetiapine Fumarate (Quetiapine Fumarate 25 Mg Tablet) 50 mg PO HS [facility] Stop: 07/17/22 20:59 Last Admin: 06/20/22 19:18 Dose: 50 mg Senna/Docusate Sodium (Docusate Sodium/Senna 50/8.6mg Tab) 1 tab PO BID [facility] Stop: 07/18/22 20:59 Last Admin: 06/21/22 08:08 Dose: Not Given Sucralfate (Sucralfate 1 Gm Tab) 1 gm PO TID [facility] Stop: 07/17/22 08:59 Last Admin: 06/21/22 13:22 Dose: 1 gm Temazepam (Temazepam 15 Mg Capsule) 15 mg PO HS [facility]I Stop: 07/17/22 20:59 Last Admin: 06/20/22 19:19 Dose: 15 mg Tramadol HCl (Tramadol Hcl 50 Mg Tablet) 25 mg PO Q4H PRN PRN Reason: Pain Stop: 07/18/22 19:51 Last Admin: 06/19/22 19:43 Dose: 25 mg
[2022-06-21] MEDS: hydrALAZINE HCL 20 MG/ML VIAL IV PRN (19:16)
[2022-06-21] MEDS: LOSARTAN POTASSIUM 50 MG TAB PO SCH (20:34)
[2022-06-21] MEDS: TEMAZEPAM 15 MG CAPSULE PO SCH (20:35)
[2022-06-21] MEDS: MoRPHine SULFATE 2 MG/ML CARP IV PRN (20:35)
[2022-06-21] MEDS: QUEtiapine FUMARATE 25 MG TABLET PO SCH (20:57)
[2022-06-22] MEDS: HYDROCORTISONE 10 MG TAB PO SCH ×2 (09:13→11:54)
[2022-06-22] MEDS: DICYCLOMINE HCL 10 MG CAP PO SCH ×4 (09:13→20:52)
[2022-06-22] MEDS: SUCRALFATE 1 GM TAB PO SCH ×3 (09:14→20:51)
[2022-06-22] MEDS: PSYLLIUM or GUAR GUM FIBER POWDER PACKET PO SCH (09:14)
[2022-06-22] MEDS: DOCUSATE SODIUM/SENNA 50/8.6MG TAB PO SCH ×2 (09:15→20:53)
[2022-06-22] MEDS: CITALOPRAM 40 MG TAB PO SCH (09:15)
[2022-06-22] MEDS: FAMOTIDINE 40 MG TABLET PO SCH (09:15)
--- NOTE | 2022-06-22 12:23 | Hospitalist Progress Note ---
Date of Service June 22, 2022 Assessment & Plan (1) Colitis: Plan: To rule out inflammatory bowel disease Presenting as LGIB at [facility] ER. History IB Remote steroid administration for presumed Crohn's disease/IBD No bowel movement since ER stay the last 2 days as per patient. Last BM AM stool studies ordered - pending collection GI consult Re: Colitis on CT Per GI - no plan for colonoscopy at this time, cont. to observe Will give Metamucil tonight Analgesia-less use of narcotics Recent COVID-19 illness status post Paxlovid (3 weeks ago) COVID-19 isolation precautions as per current [facility] policy. Anemia secondary to above Hemoglobin remains stable at 11.4 Clinically not yet ready to be discharged-complains today of pain with nausea Clear liquids has been started and will advance as tolerated Likely discharge in a day or 2 when she can tolerate solid food without significant symptoms GI will get endoscopy as an outpatient Still complains to have some abdominal pain with nausea and diarrhea seems to be improving Feels bloated but CT scan of the abdomen pelvis showed resolved previous findings and no obstruction Minimal pain left lower quadrant She has been tolerating advance diet and ambulating in the hallway without any difficulties She will be discharged home this afternoon CAD (coronary artery disease): History NSTEMI 2012 s/p MARQUISE to [facility]. No acute cardiac issues Perinephric stranding on recent CT abdomen pelvis report rule out UTI, UA recommended ->UA negative No signs and or symptoms of infection Hypertensive urgency secondary to illness, cont. to monitor BP Received 1 time dose of hydralazine on admission Losartan has been increased to 50 mg once a day from tomorrow We will continue with hydralazine as needed for BP control Elevated Blood pressure is secondary to pain Blood pressure seems to be on the upper side but has been improving Blood pressure remains on the upper side at 177/99 Blood pressure medications will be updated Iatrogenic adrenal insufficiency (secondary to steroid Rx for misdiagnosed IBD ) on chronic steroid Rx COPD, lung status at baseline HCV status post Rx Cirrhosis as per records, no overt decompensation GERD, stable on regimen Anxiety/mood disorder, at baseline Past tobacco/alcohol abuse DVT prophylaxis. SCDs Re: L GIB Full code She will be discharged home this afternoon Admission and Anticipated Discharge Date Admission Date: June 16, 2022 Subjective 06/18/2022 The patient was seen and examined in medical telemetry unit He has had suspected to have Crohn disease before and received a course of steroid which made her abdominal insufficiency She also has a history of irritable bowel syndrome and cannot remember to have a colonoscopy as an outpatient Occasional constipation and takes Colace for the Ongoing abdominal pain 06/19/2022 The patient was seen and examined in medical telemetry unit She complains to have ongoing abdominal pain and nausea Her blood pressure remains elevated 06/20/2022 The patient was seen and examined in medical telemetry unit She has been complaining of diarrhea and abdominal pain She has not tried any advance diet yet Not yet ready to be discharged 06/21/2022 Patient was seen and examined in medical telemetry unit She has been complaining of abdominal pain but less so in the diarrhea has been improving She has not tried any advance diet which will be given today Likely to discharge tomorrow 06/22/2022 The patient was seen and examined in medical telemetry unit She has been much better today Minimal pain in the left lower quadrant and the diarrhea has settled She has been tolerating solid food Discharged home this afternoon Review of Systems Review of Systems: All systems reviewed and are unremarkable except as noted below Physical Exam Physical Exam: Lying in bed comfortably Constitutional: average body habitus; not ill appearing Eyes: PERRL, conjunctivae normal, anicteric sclerae ENMT: external ear and nose normal, oropharynx normal Neck: trachea midline, no thyromegaly Respiratory: no respiratory distress Auscultation: + diminished lung sounds; no crackles Cardiovascular: Rate/Rhythm: regular rate and regular rhythm; not tachycardic Heart Sounds: normal S1 and normal S2; no murmur Extremities: no edema Gastrointestinal (Abdomen): Inspection/Auscultation: normal bowel sounds; abdomen not distended Percussion/Palpation: + abdomen tender (Minimally tender left lower quadrant without guarding) and abdomen soft Musculoskeletal: No acute arthritis involving any joint Neurologic: normal touch/pain/proprioception and moves all extremities; no focal motor deficits Psychiatric: A+Ox3, euthymic affect Lymphatic: no cervical or axillary lymphadenopathy Results & Data Results & Data Vital Signs (Past 12 Hours) Vital Signs Temp Pulse Pulse Resp BP Pulse Ox O2 Del Method 06/22/22 11:04 36.8 C 65 20 174/120 H 99 Room Air 06/22/22 08:00 Room Air 06/22/22 08:04 36.7 C 70 18 154/92 H 98 Room Air 06/22/22 07:53 61 06/22/22 03:36 36.6 C 75 18 129/86 98 Room Air 06/22/22 01:11 Room Air 06/22/22 01:11 O2 Del Method 06/22/22 11:04 06/22/22 08:00 06/22/22 08:04 06/22/22 07:53 06/22/22 03:36 06/22/22 01:11 06/22/22 01:11 Room Air Medications Administered Current Inpatient Medications Acetaminophen (Acetaminophen 500 Mg Tab) 500 mg PO Q6H PRN PRN Reason: pain/fever Stop: 07/17/22 06:42 Citalopram Hydrobromide (Citalopram 40 Mg Tab) 40 mg PO DAILY SANDI Stop: 07/17/22 08:59 Last Admin: 06/22/22 09:15 Dose: 40 mg Dextrose (Dextrose 50% 50 Ml Syringe) 25 - 50 ml IV UD PRN; Protocol PRN Reason: Hypoglycemia Protocol Stop: 07/16/22 23:37 Dicyclomine HCl (Dicyclomine Hcl 10 Mg Cap) 10 mg PO ACHS [facility] Stop: 07/19/22 11:29 Last Admin: 06/22/22 11:54 Dose: 10 mg Famotidine (Famotidine 40 Mg Tablet) 40 mg PO DAILY SANDI Stop: 07/17/22 08:59 Last Admin: 06/22/22 09:15 Dose: 40 mg Glucagon (Glucagon For Inj 1 Mg Vial) 1 mg SQ UD PRN; Protocol PRN Reason: Hypoglycemia Protocol Stop: 07/16/22 23:37 Glucose (Glucose 10 Tab/Tube) 4 - 8 tab PO UD PRN; Protocol PRN Reason: Hypoglycemia Treatment Stop: 07/16/22 23:37 Glucose (Glucose 40% Gel 15 Gm Tube) 15 - 30 gm PO UD PRN; Protocol PRN Reason: Hypoglycemia Protocol Stop: 07/16/22 23:37 Hydralazine HCl (Hydralazine Hcl 20 Mg/Ml Vial) 10 mg IV Q6H PRN PRN Reason: Blood Pressure - High Stop: 07/19/22 17:12 Last Admin: 06/21/22 19:16 Dose: 10 mg Hydrocortisone (Hydrocortisone 10 Mg Tab) 10 mg PO 0800 [facility] Stop: 07/17/22 07:59 Last Admin: 06/22/22 09:13 Dose: 10 mg Hydrocortisone (Hydrocortisone 10 Mg Tab) 5 mg PO 1200 [facility] Stop: 07/17/22 11:59 Last Admin: 06/22/22 11:54 Dose: 5 mg Promethazine HCl 6.25 mg/ (Sodium Chloride) 50.25 mls @ 201 mls/hr IV Q6H PRN PRN Reason: Nausea And Vomiting Stop: 07/16/22 22:49 Ketorolac Tromethamine (Ketorolac Tromethamine 15 Mg/Ml Vial) 15 mg IV Q6H PRN PRN Reason: Pain Stop: 06/24/22 14:48 Last Admin: 06/21/22 19:17 Dose: 15 mg Losartan Potassium (Losartan Potassium 50 Mg Tab) 50 mg PO HS [facility] Stop: 07/19/22 20:59 Last Admin: 06/21/22 20:34 Dose: 50 mg Miscellaneous (Carbohydrates For Hypoglycemia ) 15 - 30 gm PO UD PRN PRN Reason: Hypoglycemia Protocol Stop: 07/16/22 23:37 Morphine Sulfate (Morphine Sulfate 2 Mg/Ml Carp) 2 mg IV Q8H PRN PRN Reason: Pain Stop: 06/30/22 22:49 Last Admin: 06/21/22 20:35 Dose: 2 mg Polyethylene Glycol (Polyethylene (Miralax) 17 Gm Pack) 17 gm PO DAILY PRN PRN Reason: Constipation Stop: 07/16/22 23:35 Psyllium Hydrophilic Mucilloid (Psyllium Or Guar Gum Fiber Powder Packet) 1 pkt PO QAM [facility] Stop: 07/18/22 18:14 Last Admin: 06/22/22 09:14 Dose: 1 pkt Quetiapine Fumarate (Quetiapine Fumarate 25 Mg Tablet) 50 mg PO HS [facility] Stop: 07/17/22 20:59 Last Admin: 06/21/22 20:57 Dose: 50 mg Senna/Docusate Sodium (Docusate Sodium/Senna 50/8.6mg Tab) 1 tab PO BID [facility] Stop: 07/18/22 20:59 Last Admin: 06/22/22 09:15 Dose: Not Given Sucralfate (Sucralfate 1 Gm Tab) 1 gm PO TID [facility] Stop: 07/17/22 08:59 Last Admin: 06/22/22 09:14 Dose: 1 gm Temazepam (Temazepam 15 Mg Capsule) 15 mg PO HS [facility] Stop: 07/17/22 20:59 Last Admin: 06/21/22 20:35 Dose: 15 mg Tramadol HCl (Tramadol Hcl 50 Mg Tablet) 25 mg PO Q4H PRN PRN Reason: Pain Stop: 07/18/22 19:51 Last Admin: 06/19/22 19:43 Dose: 25 mg
[2022-06-22] MEDS ORDERED: hydrALAZINE HCL 20 MG/ML VIAL IV STA (13:03)
[2022-06-22] MEDS ORDERED: LOSARTAN POTASSIUM 50 MG TAB PO STA (13:07)
[2022-06-22] MEDS: KETOROLAC TROMETHAMINE 15 MG/ML VIAL IV PRN (16:28)
[2022-06-22] MEDS: carvediloL 3.125 MG TAB PO SCH (18:30)
[2022-06-22] MEDS: QUEtiapine FUMARATE 25 MG TABLET PO SCH (20:52)
[2022-06-22] MEDS: TEMAZEPAM 15 MG CAPSULE PO SCH (20:52)
[2022-06-22] MEDS: MoRPHine SULFATE 2 MG/ML CARP IV PRN (20:54)
[2022-06-23] MEDS: traMADol HCL 50 MG TABLET PO PRN (03:01)
[2022-06-23] MEDS: DICYCLOMINE HCL 10 MG CAP PO SCH (07:51)
[2022-06-23] MEDS: HYDROCORTISONE 10 MG TAB PO SCH (08:19)
[2022-06-23] MEDS: SUCRALFATE 1 GM TAB PO SCH (08:20)
[2022-06-23] MEDS: PSYLLIUM or GUAR GUM FIBER POWDER PACKET PO SCH (08:20)
[2022-06-23] MEDS: FAMOTIDINE 40 MG TABLET PO SCH (08:20)
[2022-06-23] MEDS: carvediloL 3.125 MG TAB PO SCH (08:21)
[2022-06-23] MEDS: CITALOPRAM 40 MG TAB PO SCH (08:22)
[2022-06-23] MEDS: DOCUSATE SODIUM/SENNA 50/8.6MG TAB PO SCH (08:22)
[2022-06-23] MEDS: KETOROLAC TROMETHAMINE 15 MG/ML VIAL IV PRN (08:28)
[2022-06-23] MEDS ORDERED: LOSARTAN POTASSIUM 50 MG TAB PO SCH (09:00)
--- NOTE | 2022-06-23 10:53 | Hospitalist Progress Note ---
Date of Service June 23, 2022 Assessment & Plan (1) Colitis: Plan: To rule out inflammatory bowel disease Presenting as LGIB at [facility] ER. History IB Remote steroid administration for presumed Crohn's disease/IBD No bowel movement since ER stay the last 2 days as per patient. Last BM AM stool studies ordered - pending collection GI consult Re: Colitis on CT Per GI - no plan for colonoscopy at this time, cont. to observe Will give Metamucil tonight Analgesia-less use of narcotics Recent COVID-19 illness status post Paxlovid (3 weeks ago) COVID-19 isolation precautions as per current [facility] policy. Anemia secondary to above Hemoglobin remains stable at 11.4 Clinically not yet ready to be discharged-complains today of pain with nausea Clear liquids has been started and will advance as tolerated Likely discharge in a day or 2 when she can tolerate solid food without significant symptoms GI will get endoscopy as an outpatient Still complains to have some abdominal pain with nausea and diarrhea seems to be improving Feels bloated but CT scan of the abdomen pelvis showed resolved previous findings and no obstruction Minimal pain left lower quadrant She has been tolerating advance diet and ambulating in the hallway without any difficulties Denies any significant symptoms except persisting minimal pain in the left lower quadrant without distention, nausea and or vomiting She will be discharged home this afternoon CAD (coronary artery disease): History NSTEMI 2012 s/p MARQUISE to [facility]. No acute cardiac issues Perinephric stranding on recent CT abdomen pelvis report rule out UTI, UA recommended ->UA negative No signs and or symptoms of infection Hypertensive urgency secondary to illness, cont. to monitor BP Received 1 time dose of hydralazine on admission Losartan has been increased to 50 mg once a day from tomorrow We will continue with hydralazine as needed for BP control Elevated Blood pressure is secondary to pain Blood pressure seems to be on the upper side but has been improving Blood pressure remains on the upper side at 177/99 Blood pressure medications will be updated Blood pressure medications have been changed-she is now on losartan 50 mg and Coreg 3. 125 mg twice daily Iatrogenic adrenal insufficiency (secondary to steroid Rx for misdiagnosed IBD ) on chronic steroid Rx COPD, lung status at baseline HCV status post Rx Cirrhosis as per records, no overt decompensation GERD, stable on regimen Anxiety/mood disorder, at baseline Past tobacco/alcohol abuse DVT prophylaxis. SCDs Re: L GIB Full code She will be discharged home today Admission and Anticipated Discharge Date Admission Date: June 16, 2022 Subjective 06/18/2022 The patient was seen and examined in medical telemetry unit He has had suspected to have Crohn disease before and received a course of steroid which made her abdominal insufficiency She also has a history of irritable bowel syndrome and cannot remember to have a colonoscopy as an outpatient Occasional constipation and takes Colace for the Ongoing abdominal pain 06/19/2022 The patient was seen and examined in medical telemetry unit She complains to have ongoing abdominal pain and nausea Her blood pressure remains elevated 06/20/2022 The patient was seen and examined in medical telemetry unit She has been complaining of diarrhea and abdominal pain She has not tried any advance diet yet Not yet ready to be discharged 06/21/2022 Patient was seen and examined in medical telemetry unit She has been complaining of abdominal pain but less so in the diarrhea has been improving She has not tried any advance diet which will be given today Likely to discharge tomorrow 06/22/2022 The patient was seen and examined in medical telemetry unit She has been much better today Minimal pain in the left lower quadrant and the diarrhea has settled She has been tolerating solid food Discharged home this afternoon 06/23/2022 The patient was seen and examined in medical telemetry unit She has been feeling much better today with minimal pain in the left lower quadrant Her diarrhea has been improved Blood pressure remains stable to be discharged Review of Systems Review of Systems: All systems reviewed and are unremarkable except as noted below Physical Exam Physical Exam: Lying in bed comfortably Constitutional: average body habitus; not ill appearing Eyes: PERRL, conjunctivae normal, anicteric sclerae ENMT: external ear and nose normal, oropharynx normal Neck: trachea midline, no thyromegaly Respiratory: no respiratory distress Auscultation: + diminished lung sounds; no crackles Cardiovascular: Rate/Rhythm: regular rate and regular rhythm; not tachycardic Heart Sounds: normal S1 and normal S2; no murmur Extremities: no edema Gastrointestinal (Abdomen): Inspection/Auscultation: normal bowel sounds; abdomen not distended Percussion/Palpation: + abdomen tender (Minimally tender left lower quadrant without guarding) and abdomen soft Neurologic: normal touch/pain/proprioception and moves all extremities; no focal motor deficits Psychiatric: A+Ox3, euthymic affect Lymphatic: no cervical or axillary lymphadenopathy Results & Data Results & Data Vital Signs (Past 12 Hours) Vital Signs Temp Pulse Pulse Resp BP BP Pulse Ox 06/23/22 08:02 36.9 C 66 18 144/96 H 99 06/23/22 07:04 59 L 06/23/22 03:31 36.6 C 59 L 18 136/88 99 06/23/22 00:35 67 06/22/22 23:11 36.7 C 70 18 122/73 98 O2 Del Method 06/23/22 08:02 Room Air 06/23/22 07:04 06/23/22 03:31 Room Air 06/23/22 00:35 06/22/22 23:11 Room Air
--- NOTE | 2022-06-24 07:34 | Discharge Summary ---
Date of Service June 23, 2022 Admission HPI Per Admitting Provider History obtained from patient and records. Medical history significant for iatrogenic adrenal insufficiency (secondary to steroid Rx for misdiagnosed IBD as per patient) on chronic steroid Rx, COPD, HCV status post interferon Rx (2012), cirrhosis as per records, GERD, IBS, anxiety/mood disorder, recent COVID-19 illness, past tobacco/alcohol abuse 3 weeks ago, patient had congestion symptoms. Possible sick contacts. Patient has not received COVID-19 vaccination. COVID-19 test at PCPs office positive. Patient completed outpatient Paxlovid course with improvement in congestion symptoms. Subsequent diarrhea symptoms noted at home 2 weeks ago which patient attributed to antiviral course. Intermittent bloody stools with lower abdominal pain. Involuntary weight loss over the last few months. Patient seen at [facility] ER 2 days ago. Hemoglobin noted to be normal, lactic acid within normal limits. COVID-[address] abdomen pelvis showed compression artifact versus infectious/postinflammatory colitis in the left hemicolon. Dilated fluid small bowel loops representing physiologic changes or early mild reactive small bowel ileus. Mild nonspecific central periportal edema of the liver. Patient given Decadron at the ER. General surgeon recommended GI evaluation. Patient accepted for transfer at [facility] for GI services pending bed availability. Worsening abdominal pain during ER stay the last 2 days as per patient. No bowel movement since ER stay. CT abdomen pelvis repeated today results as follows : Bilateral perinephric fat stranding which may represent pyelonephritis, recommend correlation with urinalysis. Persistent mild wall thickening of the descending colon and more conspicuous thickening of ascending colon without significant pericolonic fat stranding. Patient transferred to [facility] for GI services due to bed unavailability at [facility]. SBP 180s upon arrival at the floor. Patient denies chest pain, SOB, headache. Patient complaining of achy abdominal pain. Medical History as above 2019 colonoscopy by [place] [facility] specialist, results not known to patient Surgical History : BTL, cervical biopsy, right knee surgery, cholecystectomy, liver biopsy, tonsillectomy/adenoidectomy, partial hysterectomy, carpal tunnel surgery Family History : Colitis, colon cancer, DM, heart disease, leukemia Personal/Social history : Past tobacco/alcohol abuse, no EtOH intake, disabled Admission Exam Per Admitting Provider Physical Exam: GENERAL: uncomfortable, chronically ill, looks older than stated age, no respiratory distress SKIN: Pallor , warm HEENT: Pale palpebral conjunctivae, no ptosis, dry buccal mucosa NECK : Supple, no tenderness CHEST : Decreased breath sounds, no tenderness HEART : RRR, no obvious murmurs ABDOMEN: Some distention, hypogastric tenderness EXTREMITIES : No LE swelling/tenderness, no other conspicuous deformities noted NEUROLOGIC : Coherent, no facial asymmetry, no other gross focality Principal Diagnosis Nonspecific colitis, hypertensive urgency, CAD, adrenal insufficiency, COPD Discharge Exam Lying in bed comfortably Constitutional average body habitus; not ill appearing Eyes PERRL, conjunctivae normal, anicteric sclerae ENMT external ear and nose normal, oropharynx normal Neck trachea midline, no thyromegaly Respiratory no respiratory distress Auscultation: + diminished lung sounds; no crackles Cardiovascular Rate/Rhythm: regular rate and regular rhythm; not tachycardic Heart Sounds: normal S1 and normal S2; no murmur Extremities: no edema Gastrointestinal (Abdomen) Inspection/Auscultation: normal bowel sounds; abdomen not distended Percussion/Palpation: + abdomen tender (Minimally tender left lower quadrant without guarding) and abdomen soft Neurologic normal touch/pain/proprioception and moves all extremities; no focal motor deficits Psychiatric A+Ox3, euthymic affect Lymphatic no cervical or axillary lymphadenopathy Discharge Data Allergies Allergy/AdvReac Type Severity Reaction Status Date / Time SHIN Inhibitors Allergy Verified 05/18/22 08:55 amlodipine Allergy Verified 05/18/22 08:55 milnacipran [From Savella] Allergy Verified 05/18/22 08:55 pregabalin [From Lyrica] Allergy Verified 05/18/22 08:55 Consultations 06/16/22 21:24 Consult Gastroenterology Routine 06/17/22 09:09 HIM [Consult Health Information Management] Routine Ordered Studies 06/18/22 21:05 CT head/brain wo con Stat 06/18/22 21:07 CT abd pelvis IV con only Urgent 06/21/22 10:45 CT Abd and Pelvis [CT abd pelvis wo con] Routine Hospital Course (1) Colitis: To rule out inflammatory bowel disease Presenting as LGIB at [facility] ER. History IB Remote steroid administration for presumed Crohn's disease/IBD No bowel movement since ER stay the last 2 days as per patient. Last BM AM stool studies ordered - pending collection GI consult Re: Colitis on CT Per GI - no plan for colonoscopy at this time, cont. to observe Will give Metamucil tonight Analgesia-less use of narcotics Recent COVID-19 illness status post Paxlovid (3 weeks ago) COVID-19 isolation precautions as per current [facility] policy. Anemia secondary to above Hemoglobin remains stable at 11.4 Clinically not yet ready to be discharged-complains today of pain with nausea Clear liquids has been started and will advance as tolerated Likely discharge in a day or 2 when she can tolerate solid food without significant symptoms GI will get endoscopy as an outpatient Still complains to have some abdominal pain with nausea and diarrhea seems to be improving Feels bloated but CT scan of the abdomen pelvis showed resolved previous findings and no obstruction Minimal pain left lower quadrant She has been tolerating advance diet and ambulating in the hallway without any difficulties Denies any significant symptoms except persisting minimal pain in the left lower quadrant without distention, nausea and or vomiting She will be discharged home this afternoon CAD (coronary artery disease): History NSTEMI 2012 s/p MARQUISE to [facility]. No acute cardiac issues Perinephric stranding on recent CT abdomen pelvis report rule out UTI, UA recommended ->UA negative No signs and or symptoms of infection Hypertensive urgency secondary to illness, cont. to monitor BP Received 1 time dose of hydralazine on admission Losartan has been increased to 50 mg once a day from tomorrow We will continue with hydralazine as needed for BP control Elevated Blood pressure is secondary to pain Blood pressure seems to be on the upper side but has been improving Blood pressure remains on the upper side at 177/99 Blood pressure medications will be updated Blood pressure medications have been changed-she is now on losartan 50 mg and Coreg 3. 125 mg twice daily Iatrogenic adrenal insufficiency (secondary to steroid Rx for misdiagnosed IBD ) on chronic steroid Rx COPD, lung status at baseline HCV status post Rx Cirrhosis as per records, no overt decompensation GERD, stable on regimen Anxiety/mood disorder, at baseline Past tobacco/alcohol abuse DVT prophylaxis. SCDs Re: L GIB Full code She will be discharged home today Total Time Total Time Spent Total Time Spent (In Minutes): 35 minutes Discharge Plan Discharge Items Patient Disposition: Home - Self-Care Reason For Visit: abdominal pain Discharge Diagnosis: Nonspecific colitis, hypertensive urgency, CAD, adrenal insufficiency, COPD Activity: Resume your previous activity Non-emergency contact: Primary Care Provider Call non-emergency contact if: you have any medication questions and your symptoms worsen Follow-up/Referrals: Florinda Wagner DO [Outside Practitioners] - (Date & Time 06/28/2022 9:40 AM Provider Florinda Wagner DO Department Family Practice [facility], [place] ) Diet: Heart Healthy, Low Sodium (2gm) and Lactose Intolerant Addtl Attending Provider Instructions: Please take precautions to avoid falls Take your medications as advised Please give appointment with healthcare providers Pending Studies at Discharge: No Stand-Alone Forms: My [place], Smoking Cessation Medications and DC Order Prescriptions: New tramadol 50 mg Tablet 25 mg PO Q4H PRN (Reason: pain) 5 Days Qty: 15 0RF losartan 50 mg Tablet 50 mg PO QAM 30 Days Qty: 30 0RF carvedilol 3.125 mg Tablet 3.125 mg PO BIDM 30 Days Qty: 60 0RF Continued (DME) syringe with needle, safety [Monoject Safety Syringes] 3 mL 22 gauge x 1" syringe See Rx Instructions .Route Qty: 1 1RF Rx Instructions: Use one as directed with solu-cortef injection (DME) blood pressure test kit-medium Kit See Rx Instructions .Route Qty: 1 0RF Rx Instructions: Test once per day hydrocortisone 5 mg tablet See Rx Instructions PO BID Qty: 170 5RF Rx Instructions: Take 2x day, 10 mg in the 8 AM and 5 mg in the 12noon , Double in times of stress sucralfate 1 gram tablet 1 gm PO TID citalopram 40 mg tablet 40 mg PO DAILY quetiapine 100 mg tablet 50 mg PO HS temazepam 15 mg capsule 15 mg PO HS Solu-Cortef Act-O-Vial (PF) 100 mg/2 mL recon soln 100 mg IM PRN PRN (Reason: adrenal crisis ) Qty: 1 0RF baclofen 5 mg tablet 5 mg PO TID PRN (Reason: Spasms) famotidine 40 mg tablet 40 mg PO DAILY Vitamin D2 tablet 1,250 mcg PO WK albuterol sulfate [ProAir HFA] 90 mcg/actuation Hfa Aerosol Inhaler 1 puff INHALATION Q4H PRN (Reason: Shortness Of Breath Or Wheezing) Discharge Orders: Discharge Order (Routine); Ordered 06/23/22 Ordered By: Farideh Erazo Admission Data Admit Date/Time: 06/16/22 21:22 Attending Provider: Farideh Erazo Admit Provider: Sandro Peña Primary Care Provider: Prasanth Jon Other Providers: Dyllan Parry ; Jesús Goodwin ; Natali Burton ; Arcelia Mares ; Agnes Bojorquez ; Bee Sethi ; Dom Castillo ; Brett Ko ; Wilmer Grace ; Sridevi Rangel ; Roverto Copeland ; Jocelyn Quesada ; Jossie Garsia ; Amira Villafana ; Tressa Rice ; Jennifer Brandon ; William Lee ; Kingsley Driver ; Jennifer Amos ; Brett Rasheed Jr ; Ronnell Lizarraga Other Interventions: Discharge Summary Assessment (RN) Last Done: 06/23/22 11:40
== END 2022-06-23 12:29 | disposition home or self-care (01) | DRG 392 ==
LOC: 3W 21:02 → SUATTDRO 21:22 → SUPCPDRO 21:22 → 2W 22:52

== ENCOUNTER 2024-01-09 13:34 | Observation (INO) ==
[2024-01-09 13:53] LABS: Basophils # (auto) 0.06 K/uL (0.00-0.20); Basophils % (auto) 0.8 %; Eosinophils # (auto) 0.04 K/uL (0.00-0.50); Eosinophils % (auto) 0.5 %; Hematocrit (blood only) 29.9 % (37.0-47.0); Hemoglobin 11.2 g/dl (12.0-16.0); Immature Granulocytes # (auto) 0.01 K/uL (0.01-0.20); Immature Granulocytes % (auto) 0.1 %; Lymphocytes # (auto) 2.82 K/uL (1.20-3.40); Lymphocytes % (auto) 37.5 %; Mean Corpuscular Hemoglobin 29.9 pg (25.0-34.0); Mean Corpuscular Hgb Conc 37.5 g/dL (32.0-36.0); Mean Corpuscular Volume 79.9 fL (80.0-100.0); Mean Platelet Volume 10.1 fL (9.4-12.4); Monocytes # (auto) 0.44 K/uL (0.11-0.59); Monocytes % (auto) 5.8 %; Neutrophils # (auto) 4.16 K/uL (1.40-6.50); Neutrophils % (auto) 55.3 %; Platelet Count 247 K/uL (130-400); RDW Coefficient of Variation 13.8 % (11.5-14.5); RDW Standard Deviation 39.1 fL (36.4-46.3); Red Blood Count 3.74 M/uL (4.20-5.40); White Blood Count 7.53 K/ul (4.8-10.8)
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
[2024-01-09 14:11] LABS: Alanine Aminotransferase 9 U/L (7-52); Albumin Globulin Ratio 1.7 (0.9-2); Albumin Level 3.9 gm/dl (3.4-5.0); Alkaline Phosphatase 53 U/L (34-104); Anion Gap 7 (3-11); Aspartate Aminotransferase 17 U/L (13-39); BUN Creatinine Ratio 15.4 (10-20); Bilirubin,Total 0.4 mg/dl (0.2-1.0); Blood Urea Nitrogen 14 mg/dl (6-23); Calcium 9.2 mg/dl (8.6-10.3); Carbon Dioxide 25 mmol/L (21-32); Chloride 109 mmol/L (98-107); Creatinine Clr Calc Pharmacy 54.6 ml/min; Globulin 2.3 gm/dl (2.5-4.0); Glucose 98 mg/dl (70-99(Fasting)); Lipase 64 U/L (11-82); Magnesium 1.9 mg/dl (1.7-2.4); Phosphorus 2.4 mg/dl (2.5-4.9); Potassium 3.8 mmol/L (3.5-5.1); Sodium 141 mmol/L (136-145); Total Protein 6.2 gm/dl (6.0-8.3)
[2024-01-09 14:16] LABS: Troponin I High Sensitivity < 2.3 pg/ml (0-14)
--- NOTE | 2024-01-09 14:24 | XRay Report ---
SINGLE VIEW CHEST CLINICAL HISTORY: Atypical chest pain. FINDINGS: An AP, portable, upright chest radiograph is correlated with chest CT dated 05/23/2016. The cardiomediastinal silhouette is unremarkable. The lungs and pleural spaces are clear. No pneumothorax is seen. The bony thorax is grossly intact. IMPRESSION: No active disease in the chest. ACT 112: Negative or not required by law. Electronically signed by: Kashmir Draper M.D. 01/09/2024 2:23 PM
[2024-01-09 14:26] LABS: INR 1.1 (0.9-1.1); Prothrombin Time 11.4 Seconds (9.0-12.0)
[2024-01-09] MEDS: OPTIRAY 320 125ml IV ONE (14:39)
[2024-01-09] MEDS: ACETAMINOPHEN 1,000 MG/100 ML VIAL IV STA (14:51)
[2024-01-09] MEDS: FAMOTIDINE 20MG IV PUSH 20 MG/5 ML SYR IV STA (14:51)
[2024-01-09] MEDS: ONDANSETRON INJ 2 MG/ML 2 ML VIAL IV STA (14:51)
[2024-01-09] MEDS: SODIUM CHLORIDE 0.9% 500 ML IV ONE (14:51)
--- NOTE | 2024-01-09 15:03 | CT Scan Report ---
CT head/brain wo con CLINICAL HISTORY: MENDEZ, HTN, adrenal insuff Technique: Contiguous axial CT images of the head were acquired from the base of the skull to the wilman alice without intravenous contrast administration. Images were viewed in brain, subdural and bone windo ws. Automated dose lowering techniques and/or adjustment according to patient size were utilized for this exam. Comparison: Comparison is made to CT head 06/18/2022 Findings: The ventricles, basal cisterns, and cerebral sulci are normal. There is no acute intracranial hemorrh age or evidence of acute territorial infarction. Neither mass effect, shift of the midline structures , nor abnormal extra-axial fluid collections are shown. Imaged portions of the paranasal sinuses and mastoid air cells are clear. The orbits appear normal. There are no acute fractures of the calvaria or scalp swelling. Impression: No acute intracranial hemorrhage, no evidence of acute territorial infarction or other acute intracra nial disease process. ACT 112: Negative or not required by law. Electronically signed by: Lewis Nava M.D. 01/09/2024 3:00 PM
--- NOTE | 2024-01-09 15:16 | CT Scan Report ---
CTA ANGIOGRAPHY OF THE HEAD CLINICAL HISTORY: MENDEZ, HTN, adrenal insuff COMPARISON STUDY: Head CT June 18, 2022. TECHNIQUE: Helical axial images of the head were obtained following uneventful intravenous administr ation of 120 cc of Optiray. Sagittal and coronal reconstructions were viewed as well as maximal inten sity projections on an independent 3-D workstation. Automated exposure control was utilized for the study. A dose lowering technique was utilized adhering to the principles of ALARA. FINDINGS: No acute intracranial hemorrhage, midline shift or mass effect is present. Ventricular syst em is unremarkable. Basal cisterns are patent. There are no extra-axial collections. The bilateral M1 , M2, A1 and A2 segments are patent. There is no vessel occlusion. The posterior circulation is intac t. There is no intracranial aneurysm or dissection. IMPRESSION: No large vessel occlusion. No intracranial aneurysm. ACT 112: Negative or not required by law. Electronically signed by: Ladarius Bowers M.D. 01/09/2024 3:15 PM
--- NOTE | 2024-01-09 15:17 | CT Scan Report ---
CT ANGIOGRAM OF THE NECK CLINICAL HISTORY: Headache. Hypertension. COMPARISON STUDY: No priors. TECHNIQUE: Following the IV administration of 120 of Optiray 320, CT angiogram of the neck was perfor med from the aortic arch to the skull base. Images are reviewed in the axial, sagittal, and coronal p lanes. 3-D MIPS images are created and assessed. IV contrast was administered without complication. A ll measurements were calculated based on NASCET criteria. A dose lowering technique was utilized adh ering to the principles of ALARA. FINDINGS: Thoracic aorta: Visualized portions of the thoracic aorta are normal in caliber. The aortic arch demo nstrates standard 3-vessel anatomy. Right carotid arterial system: The right common carotid artery is widely patent, as are the right int ernal and external carotid arteries. Left carotid arterial system: The left common carotid artery is widely patent, as are the left seo intern al and external carotid arteries. Minimal calcified plaque is seen in the carotid bulb. Vertebral arteries: Widely patent bilaterally and codominant. Subclavian arteries: Widely patent bilaterally. Intracranial vasculature: The visualized intracranial vessels at the skull base are patent. Jugular veins: Patent bilaterally. Brain parenchyma: The visualized brain parenchyma the skull base is within normal limits. Lung apices: Partially visualized upper lobe lung parenchyma appears clear. Soft tissues: The visualized pharyngeal soft tissues are normal in appearance noting angiographic pha se technique. The oropharyngeal airway appears widely patent. The salivary and thyroid glands are nor mal in appearance. No cervical lymphadenopathy is seen. Skeletal structures: The visualized calvarium at the skull base appears intact. The imaged cervical s pine is maintained noting mild to moderate multilevel spondylosis. Sinuses and mastoids: There is trace mucosal thickening within the maxillary antra. The mastoid air c ells are well pneumatized. Cerumen is noted in the external auditory canals. IMPRESSION: Unremarkable CT angiogram of the neck. ACT 112: Negative or not required by law. Electronically signed by: Kashmir Draper M.D. 01/09/2024 3:16 PM
--- NOTE | 2024-01-09 15:23 | CT Scan Report ---
CT OF THE ABDOMEN AND PELVIS WITH CONTRAST CLINICAL HISTORY: Nausea, vomiting and diarrhea, htn, adrenal insufficiency . COMPARISON STUDY: CT of the abdomen and pelvis June 21, 2022. TECHNIQUE: Following IV administration of 120 mL of Optiray, axial images of the abdomen and pelvis w ere obtained from the lung bases to the proximal femurs. Images were reviewed in the axial, sagittal, and coronal planes. IV contrast was administered without complication. Automated exposure control w as utilized for the study. A dose lowering technique was utilized adhering to the principles of ALAR A. CT DOSE: 1209.27 mGy.cm FINDINGS: No pneumatosis, free air or portal venous gas is present. There is no biliary ductal dilata tion status post cholecystectomy. Liver, spleen, adrenal glands, kidneys and pancreas are unremarkabl e. There is no hydronephrosis. There is no peripancreatic infiltration. There is trace fluid within t he pelvis. The appendix is normal. There is no evidence for a bowel obstruction. Diffuse mucosal enha ncement of the small bowel is noted. There are no fluid collections. Major vasculature is patent. IMPRESSION: 1. Normal appendix. No bowel obstruction. 2. Diffuse mucosal enhancement of the small bowel. This could be related to the phase of enhancement however a nonspecific enteritis could appear similar. 3. Trace fluid within the pelvis. No fluid collections. ACT 112: Negative or not required by law. Electronically signed by: Ladarius Bowers M.D. 01/09/2024 3:21 PM
[2024-01-09 15:32] LABS: Adenovirus PCR Not Detected (NotDetected); Bordetella parapertussis PCR Not Detected (NotDetected); Bordetella pertussis PCR Not Detected (NotDetected); Chlamydia pneumoniae PCR Not Detected (NotDetected); Coronavirus 229E PCR Not Detected (NotDetected); Coronavirus CoV-2 (COVID19)PCR Not Detected (NotDetected); Coronavirus HKU1 PCR Not Detected (NotDetected); Coronavirus NL63 PCR Not Detected (NotDetected); Coronavirus OC43PCR Not Detected (NotDetected); Human Metapneumovirus PCR Not Detected (NotDetected); Influenza A PCR Not Detected (NotDetected); Influenza B PCR Not Detected (NotDetected); Mycoplasma pneumoniae PCR Not Detected (NotDetected); Parainfluenza Virus 1 PCR Not Detected (NotDetected); Parainfluenza Virus 2 PCR Not Detected (NotDetected); Parainfluenza Virus 3 PCR Not Detected (NotDetected); Parainfluenza Virus 4 PCR Not Detected (NotDetected); Respiratory Syncytial VirusPCR Not Detected (NotDetected); Rhinovirus/Enterovirus PCR Not Detected (NotDetected)
[2024-01-09 15:36] LABS: Appearance Urine Clear (Clear); Bilirubin Urine Negative (Negative); Blood Urine Negative (Negative); Color Urine Yellow; Glucose Urine UA Negative (Negative); Ketones Urine Negative (Negative); Leukocyte Esterase Urine Negative (Negative); Nitrite Urine Negative (Negative); Protein Urine Negative (Negative); Specific Gravity Urine > 1.045 (1.000-1.030); Urobilinogen Urine Negative (Negative); pH Urine 7.5 (4.5-7.5)
--- NOTE | 2024-01-09 15:39 | Electrocardiogram Report ---
Test Reason : Blood Pressure : */* mmHG Vent. Rate : 58 BPM Atrial Rate : 58 BPM P-R Int : 140 ms QRS Dur : 78 ms QT Int : 466 ms P-R-T Axes : 75 65 67 degrees QTcB Int : 457 ms Sinus bradycardia Abnormal ECG When compared with ECG of 18-Jun-2022 19:26, T wave inversion no longer evident in Inferior leads Confirmed by Chapin Beatty ([id number]) on 01/09/2024 3:39:09 PM Referred By: REFERRED SELF Confirmed By: Chapin Beatty
[2024-01-09] MEDS: hydrALAZINE HCL 20 MG/ML VIAL IV ONE (16:02)
--- NOTE | 2024-01-09 17:00 | History & Physical Report ---
Date of Service January 09, 2024 Assessment & Plan (1) Hypertensive urgency: Plan: This is a 53 y/o female with iatrogenic adrenal insufficiency, HTN, depression with anxiety, ADHD, and other history as outlined below who presented to the ED with persistently elevated BP at home. She has associated chest discomfort, MENDEZ, nausea, blurry vision. Work-up in the ED showed a negative troponin, normal creatinine. She was referred for admission due to persistent BP elevation in the ED with associated chest discomfort. Of note, pt increased her baseline hydrocortisone, which she is on for adrenal insufficiency, within the last several days due to increased life stresses. It is likely that her current BP elevation is multifactorial, in part due to higher steroid doses in conjunction with psychosocial stressors. Her symptomatology may also be exacerbated by both caffeine and nicotine withdrawal since pt stopped both of these in hopes it would help her blood pressure. She has a family history of cardiac disease in her father, who had a CABG x 4, so will need to be further evaluated for potential cardiac etiology of chest discomfort. - Admit to PCU - Increase losartan to 50 mg BID, continue carvedilol at current dose due to borderline bradycardiac (HR in upper 50s to low 60s) - PRN IV hydralazine for SBP >160 - Decrease hydrocortisone back to baseline doses and monitor - If persistent BP elevation, consider addition of third agent. Of note, pt had edema with amlodipine and a cough with ACEIs. - Labs in the AM - CBC, BMP - Consult cardiology for additional recommendations for BP control, work-up and management of chest pain (2) Chest pain: Plan: Likely related to #1 but need to evaluate for ischemia Trend troponin EKG in the AM Check ECHO (3) Iatrogenic adrenal insufficiency: Plan: Due to chronic steroids from misdiagnosed IBD Decrease hydrocortisone to baseline doses as concern that higher doses are contributing to elevated BP (4) Depression with anxiety: Plan: Pt reports increased life stressors, feels sad and anxious, having trouble sleeping Continue outpatient meds other than stimulants for ADHD which are on hold due to elevated BP Add prn lorazepam for short-term use while admitted Consult psychiatry for additional medication recommendations (5) Peripheral neuropathy: Plan: Chronic, stable Continue gabapentin Plan Pt seen and reviewed with collaborating physician, Dr. Jack. Plan of care discussed and as outlined above. Code status: full code DVT prophylaxis: Lovenox Admit to PCU for IV anti-hypertensives, chest pain rule out. Romina Iverson PA-C History of Present Illness Chief Complaint: elevated blood pressure Primary Care Provider: [facility] This is a 53 y/o female with iatrogenic adrenal insufficiency, HTN, depression w ith anxiety, ADHD, and other history as outlined below who presented to the ED with persistently elevated BP at home. Pt reports that she noticed her BP was elevated 5-7 days ago. She was seen in the ED in [place] a few days ago and given unknown medication (?hydralazine) with some improvement so she was discharged. She reports no new BP meds were added at that visit. Once home, she noticed her BP again going up with most recent readings in the last 24 hours being 200/110s. She has been taking extra doses of her losartan and carvedilol to try to help with the BP elevation at home but had no significant relief. Over the same period of time that the BP has been elevated, she describes chest heaviness and discomfort, difficulty taking a deep breath, pounding MENDEZ, nausea, and blurry vision. Over the last two weeks, she has been under increased life stressors so she increased her daily hydrocortisone to prescribed stress doses, which are twice her usual dose. She is unsure exactly when she did increased the hydrocortisone, specifically in relation to when her BP became elevated. She denies similar issues with elevated BP or similar symptoms previously, reporting that she typically has issues with low blood pressure instead of high. Since she noticed the elevated BP, she tried stopping taking the stimulants she was on for ADHD and she cut out all caffeine and stopped vaping (nicotine). Earlier this week, she had watery diarrhea but has had no BM for the last two days. She had vomiting associated with the diarrhea but has not vomited since yesterday. Appetite has been decreased with resultant decreased oral intake. Allergies Allergy/AdvReac Type Severity Reaction Status Date / Time SHIN Inhibitors Allergy cough Verified 01/09/24 17:12 amlodipine Allergy edema Verified 01/09/24 17:12 milnacipran [From Savella] Allergy rash Verified 01/09/24 17:12 pregabalin [From Lyrica] Allergy Unknown Verified 01/09/24 16:17 Home Medications Medication Instructions Recorded Confirmed Type citalopram 40 mg tablet 40 mg PO QPM 11/18/18 01/09/24 History famotidine 40 mg tablet 40 mg PO DAILY PRN GERD 06/16/22 01/09/24 History hydrocortisone 5 mg tablet See Rx Instructions PO BID #170 04/05/23 01/09/24 Rx tabs atorvastatin 10 mg tablet 10 mg PO HS 01/09/24 01/09/24 History carvedilol 3.125 mg tablet 3.125 mg PO BID 01/09/24 01/09/24 History dextroamphetamine-amphetamine 10 10 mg PO UD 01/09/24 01/09/24 History mg tablet gabapentin 600 mg tablet 600 mg PO BID 01/09/24 01/09/24 History hydrocortisone sod succ (PF) 100 100 mg IM PRN PRN SEVERE adrenal 01/09/24 01/09/24 History mg/2 mL solution for injection crisis (Solu-Cortef Act-O-Vial (PF)) losartan 50 mg tablet 50 mg PO QAM 01/09/24 01/09/24 History quetiapine 50 mg tablet 50 mg PO HS PRN Insomnia 01/09/24 01/09/24 History sucralfate 1 gram tablet 1 g PO AC 01/09/24 01/09/24 History temazepam 30 mg capsule 30 mg PO HS 01/09/24 01/09/24 History Past Med/Surg History Problem List (Updated 01/09/24 @ 18:44 by Mati Costa MD) Adrenal insufficiency (Acute) Chest pain Peripheral neuropathy Depression with anxiety Hypertensive urgency (Acute) ADHD Colitis Postural hypotension Iatrogenic adrenal insufficiency due to chronic steroids from misdiagnosed IBD Medical History (Updated 01/09/24 @ 18:44 by Mati Costa MD) C2 cervical fracture due to four palmer accident - resultant peripheral neuropathy Solitary pulmonary nodule IBS (irritable bowel syndrome) Chronic hepatitis C hx ribavirin and interferon therapy Surgical History (Updated 01/09/24 @ 16:20 by Tita Iverson PA-C) History of surgery on wrist History of cholecystectomy History of partial hysterectomy History of tonsillectomy and adenoidectomy H/O tubal ligation Family History Family/Other Colon cancer Leukemia Myocardial infarction Mother Anxiety Social History Smoking Status: Former smoker Tobacco Type: E-cigarettes / Vaping Second Hand Exposure: No; Do You Dip or Chew Tobacco: No; Hx Alcohol Use: No Hx Substance Use: No Preferred Language: Yoruba Communication Ability: Effective External Grinder Tool Required: No Beliefs That Will Affect Care: None marital status: Current Living Situation: Alone Feels Safe at Home: Yes Safety Concerns: Feels Safe At This Time Assistive Devices: None Review of Systems Review of Systems: All systems reviewed & are unremarkable except as noted in Subjective Constitutional: + sweats, + fatigue and + anorexia; no f ever Eyes: + photophobia; no diplopia Genitourinary: no dysuria and no hematuria Neurologic: + generalized weakness, + dizziness and + headache(s) Psychiatric: + depression and + anxiety Physical Exam Physical Exam: General: lying in dark room with eyes closed, does not appear in distress but reports she cannot get comfortable in any position HEENT: moist oral mucosa Neck: trachea midline, supple Heart: RRR Lungs: CTA bilaterally Abdomen: soft, NT, +BS Extremities: distal pulses intact and equal, no pedal edema Skin: warm, dry, no rashes or jaundice Neurologic: no confusion or dysarthria, moving all extremities, no focal deficit, +difficulty recalling details of recent history Psych: anxious affect Results & Data Results & Data Vital Signs (Past 12 Hours) Vital Signs Temp Pulse Resp BP Pulse Ox O2 Del Method 01/09/24 16:30 160/100 H 01/09/24 16:16 172/132 H 01/09/24 16:12 67 22 99 01/09/24 16:00 170/121 H 01/09/24 15:51 56 L 18 100 01/09/24 15:48 56 L 17 99 01/09/24 15:30 179/113 H 01/09/24 15:21 62 16 100 01/09/24 15:18 62 16 100 01/09/24 15:00 177/105 H 01/09/24 15:00 177/105 H 01/09/24 15:00 65 100 01/09/24 14:51 70 17 100 01/09/24 14:33 59 L 18 100 01/09/24 14:32 59 L 01/09/24 14:30 172/116 H 01/09/24 14:00 55 L 191/115 H 100 01/09/24 13:19 Room Air 01/09/24 13:19 37 C 56 L 20 199/126 H 100 Laboratory Results Lab Results 01/09/24 01/09/24 01/09/24 Range/Units 13:41 14:33 15:23 WBC 7.53 (4.8-10.8) K/ul RBC 3.74 L (4.20-5.40) M/uL Hgb 11.2 L (12.0-16.0) g/dl Hct 29.9 L (37.0-47.0) % MCV 79.9 L (80.0-100.0) fL MCH 29.9 (25.0-34.0) pg MCHC 37.5 H (32.0-36.0) g/dL RDW Std Deviation 39.1 (36.4-46.3) fL RDW Coeff of Kalani 13.8 (11.5-14.5) % Plt Count 247 (130-400) K/uL MPV 10.1 (9.4-12.4) fL Immature Gran % (Auto) 0.1 % Neut % (Auto) 55.3 % Lymph % (Auto) 37.5 % [place] % (Auto) 5.8 % Eos % (Auto) 0.5 % Baso % (Auto) 0.8 % Neut # (Auto) 4.16 (1.40-6.50) K/uL Lymph # (Auto) 2.82 (1.20-3.40) K/uL [place] # (Auto) 0.44 (0.11-0.59) K/uL Eos # (Auto) 0.04 (0.00-0.50) K/uL Baso # (Auto) 0.06 (0.00-0.20) K/uL Immature Gran # (Auto) 0.01 (0.01-0.20) K/uL PT 11.4 (9.0-12.0) Seconds INR 1.1 (0.9-1.1) Sodium 141 (136-145) mmol/L Potassium 3.8 (3.5-5.1) mmol/L Chloride 109 H (98-107) mmol/L Carbon Dioxide 25 (21-32) mmol/L Anion Gap 7 (3-11) BUN 14 (6-23) mg/dl Creatinine 0.91 (0.6-1.2) mg/dl Est Cr Clr Drug Dosing 54.6 ml/min eGFR 74.97 BUN/Creatinine Ratio 15.4 (10-20) Glucose 98 (70-99(Fasting)) mg/dl Calcium 9.2 (8.6-10.3) mg/dl Phosphorus 2.4 L (2.5-4.9) mg/dl Magnesium 1.9 (1.7-2.4) mg/dl Total Bilirubin 0.4 (0.2-1.0) mg/dl AST 17 (13-39) U/L ALT 9 (7-52) U/L Alkaline Phosphatase 53 (34-104) U/L Troponin I High Sens < 2.3 (0-14) pg/ml Total Protein 6.2 (6.0-8.3) gm/dl Albumin 3.9 (3.4-5.0) gm/dl Globulin 2.3 L (2.5-4.0) gm/dl Albumin/Globulin Ratio 1.7 (0.9-2) Lipase 64 (11-82) U/L Random Cortisol 14.26 mcg/dl Urine Color Yellow Urine Appearance Clear (Clear) Urine pH 7.5 (4.5-7.5) Ur Specific [place] > 1.045 H (1.000-1.030) Urine Protein Negative (Negative) Urine Glucose (UA) Negative (Negative) Urine Ketones Negative (Negative) Urine Blood Negative (Negative) Urine Nitrite Negative (Negative) Urine Bilirubin Negative (Negative) Urine Urobilinogen Negative (Negative) Ur Leukocyte Esterase Negative (Negative) Adenovirus (PCR) Not Detected (NotDetected) B. pertussis DNA (PCR) Not Detected (NotDetected) B.parapertussis DNA PCR Not Detected (NotDetected) C. pneumoniae DNA (PCR) Not Detected (NotDetected) Coronavirus OC43 (PCR) Not Detected (NotDetected) Coronavirus HKU1 (PCR) Not Detected (NotDetected) Coronavirus 229E (PCR) Not Detected (NotDetected) SARS-CoV-2 (PCR) Not Detected (NotDetected) Coronavirus NL63 (PCR) Not Detected (NotDetected) Human Metapneumovir PCR Not Detected (NotDetected) Influenza Type A (PCR) Not Detected (NotDetected) Influenza Type B (PCR) Not Detected (NotDetected) M. pneumoniae (PCR) Not Detected (NotDetected) Parainfluenza 1 (PCR) Not Detected (NotDetected) Parainfluenza 2 (PCR) Not Detected (NotDetected) Parainfluenza 3 (PCR) Not Detected (NotDetected) Parainfluenza 4 (PCR) Not Detected (NotDetected) RSV (PCR) Not Detected (NotDetected) Entero/Rhino (PCR) Not Detected (NotDetected) Diagnostic Findings Chest X-Ray 01/09/24 13:38 SINGLE VIEW CHEST CLINICAL HISTORY: Atypical chest pain. FINDINGS: An AP, portable, upright chest radiograph is correlated with chest CT dated 05/23/2016. The cardiomediastinal silhouette is unremarkable. The lungs and pleural spaces are clear. No pneumothorax is seen. The bony thorax is grossly intact. IMPRESSION: No active disease in the chest. ACT 112: Negative or not required by law. Electronically signed by: Kashmir Draper M.D. 01/09/2024 2:23 PM Abdomen/Pelvis CT 01/09/24 14:24 CT OF THE ABDOMEN AND PELVIS WITH CONTRAST CLINICAL HISTORY: Nausea, vomiting and diarrhea, htn, adrenal insufficiency . COMPARISON STUDY: CT of the abdomen and pelvis June 21, 2022. TECHNIQUE: Following IV administration of 120 mL of Optiray, axial images of the abdomen and pelvis were obtained from the lung bases to the proximal femurs. Images were reviewed in the axial, sagittal, and coronal planes. IV contrast was administered without complication. Automated exposure control was utilized for the study. A dose lowering technique was utilized adhering to the principles of ALARA. CT DOSE: 1209.27 mGy.cm FINDINGS: No pneumatosis, free air or portal venous gas is present. There is no biliary ductal dilatation status post cholecystectomy. Liver, spleen, adrenal glands, kidneys and pancreas are unremarkable. There is no hydronephrosis. There is no peripancreatic infiltration. There is trace fluid within the pelvis. The appendix is normal. There is no evidence for a bowel obstruction. Diffuse mucosal enhancement of the small bowel is noted. There are no fluid collections. Major vasculature is patent. IMPRESSION: 1. Normal appendix. No bowel obstruction. 2. Diffuse mucosal enhancement of the small bowel. This could be related to the phase of enhancement however a nonspecific enteritis could appear similar. 3. Trace fluid within the pelvis. No fluid collections. ACT 112: Negative or not required by law. Electronically signed by: Ladarius Bowers M.D. 01/09/2024 3:[address] 01/09/24 14:24 CT head/brain wo con CLINICAL HISTORY: MENDEZ, HTN, adrenal insuff Technique: Contiguous axial CT images of the head were acquired from the base of the skull to the vertex without intravenous contrast administration. Images were viewed in brain, subdural and bone windows. Automated dose lowering techniques and/or adjustment according to patient size were utilized for this exam. Comparison: Comparison is made to CT head 06/18/2022 Findings: The ventricles, basal cisterns, and cerebral sulci are normal. There is no acute intracranial hemorrhage or evidence of acute territorial infarction. Neither mass effect, shift of the midline structures, nor abnormal extra-axial fluid collections are shown. Imaged portions of the paranasal sinuses and mastoid air cells are clear. The orbits appear normal. There are no acute fractures of the calvaria or scalp swelling. Impression: No acute intracranial hemorrhage, no evidence of acute territorial infarction or other acute intracranial disease process. ACT 112: Negative or not required by law. Electronically signed by: Lewis Nava M.D. 01/09/2024 3:00 PM Head CTA 01/09/24 14:28 CTA ANGIOGRAPHY OF THE HEAD CLINICAL HISTORY: MENDEZ, HTN, adrenal insuff COMPARISON STUDY: Head CT June 18, 2022. TECHNIQUE: Helical axial images of the head were obtained following uneventful intravenous administration of 120 cc of Optiray. Sagittal and coronal reconstructions were viewed as well as maximal intensity projections on an independent 3-D workstation. Automated exposure control was utilized for the study. A dose lowering technique was utilized adhering to the principles of ALARA. FINDINGS: No acute intracranial hemorrhage, midline shift or mass effect is present. Ventricular system is unremarkable. Basal cisterns are patent. There are no extra-axial collections. The bilateral M1, M2, A1 and A2 segments are patent. There is no vessel occlusion. The posterior circulation is intact. There is no intracranial aneurysm or dissection. IMPRESSION: No large vessel occlusion. No intracranial aneurysm. ACT 112: Negative or not required by law. Electronically signed by: Ladarius Bowers M.D. 01/09/2024 3:15 PM Neck CTA 01/09/24 14:28 CT ANGIOGRAM OF THE NECK CLINICAL HISTORY: Headache. Hypertension. COMPARISON STUDY: No priors. TECHNIQUE: Following the IV administration of 120 of Optiray 320, CT angiogram of the neck was performed from the aortic arch to the skull base. Images are reviewed in the axial, sagittal, and coronal planes. 3-D MIPS images are created and assessed. IV contrast was administered without complication. All measurements were calculated based on NASCET criteria. A dose lowering technique was utilized adhering to the principles of ALARA. FINDINGS: Thoracic aorta: Visualized portions of the thoracic aorta are normal in caliber. The aortic arch demonstrates standard 3-vessel anatomy. Right carotid arterial system: The right common carotid artery is widely patent, as are the right internal and external carotid arteries. Left carotid arterial system: The left common carotid artery is widely patent, as are the left internal and external carotid arteries. Minimal calcified plaque is seen in the carotid bulb. Vertebral arteries: Widely patent bilaterally and codominant. Subclavian arteries: Widely patent bilaterally. Intracranial vasculature: The visualized intracranial vessels at the skull base are patent. Jugular veins: Patent bilaterally. Brain parenchyma: The visualized brain parenchyma the skull base is within normal limits. Lung apices: Partially visualized upper lobe lung parenchyma appears clear. Soft tissues: The visualized pharyngeal soft tissues are normal in appearance noting angiographic phase technique. The oropharyngeal airway appears widely patent. The salivary and thyroid glands are normal in appearance. No cervical lymphadenopathy is seen. Skeletal structures: The visualized calvarium at the skull base appears intact. The imaged cervical spine is maintained noting mild to moderate multilevel spondylosis. Sinuses and mastoids: There is trace mucosal thickening within the maxillary antra. The mastoid air cells are well pneumatized. Cerumen is noted in the external auditory canals. IMPRESSION: Unremarkable CT angiogram of the neck. ACT 112: Negative or not required by law. Electronically signed by: Kashmir Draper M.D. 01/09/2024 3:16 PM Medications Administered Discontinued Medications Hydralazine HCl (Hydralazine Hcl 20 Mg/Ml Vial) 5 mg IV NOW ONE Stop: 01/09/24 15:53 Last Admin: 01/09/24 16:02 Dose: 5 mg Documented By: MORENO Sodium Chloride (Nss) 500 mls @ 999 mls/hr IV .Q31M ONE Stop: 01/09/24 15:02 Last Infusion: 01/09/24 15:20 Dose: Infused Documented By: Admin: 01/09/24 14:51 Dose: 999 mls/hr Documented By: Famotidine (Pepcid 20mg Iv Push) 20 mg in 5 mls @ 2.5 mls/min IV NOW STA Stop: 01/09/24 14:33 Last Admin: 01/09/24 14:51 Dose: 2.5 mls/min Documented By: Acetaminophen (Ofirmev) 1,000 mg in 100 mls @ 400 mls/hr IV NOW STA Stop: 01/09/24 14:46 Last Infusion: 01/09/24 15:15 Dose: Infused Documented By: Admin: 01/09/24 14:51 Dose: 400 mls/hr Documented By: Ioversol (Optiray 320 125ml) 120 ml IV ONCE ONE Stop: 01/09/24 14:40 Last Admin: 01/09/24 14:39 Dose: 120 ml Documented By: NILSON Ondansetron HCl (Ondansetron Inj 2 Mg/Ml 2 Ml Vial) 4 mg IV NOW STA Stop: 01/09/24 14:33 Last Admin: 01/09/24 14:51 Dose: 4 mg Documented By: Code Status & VTE Plan VTE Prophylaxis Plan VTE Prophylaxis will be ordered: Yes Supervising Physician Co-Signing Physician Notes Attending Addendum: Case reviewed with the advanced practitioner. I have personally performed a history and physical examination on the patient. I have reviewed the advanced practitioner's documentation on the date of service referenced in note, and I agree with, and take responsibility for the plan of care. please refer to her notes for full details patient seen and examined, records reviewed by myself as well on exam, patient seen resting in bed, comfortable sleeping but easily awakened states she has generalized headache, no nausea, blurred vision, focal weakness or numbness no chest pain, shortness of breath, palpitations, dizziness on exam no other symptoms VS noted and reviewed oriented x3, not in distress, speaks in sentences with no effort nor accessory muscle use normal rate, regular rhythm, no murmurs clear breath sounds bilaterally non distended, soft, nontender no bipedal edema, erythema, warmth no neuro deficits all labs, imaging noted and reviewed ASSESSMENT AND PLAN> HYPERTENSIVE URGENCY increase usual Losartan 50mg daily to BID continue usual Carvedilol if still uncontrolled, add HCTZ CHEST PAIN likely from #1 r/o ACS trop x 1 negative, trend EKG: no acute ischemia Echo ordered Cardiology consulted ASA held off in light of headache in the setting of hypertensive urgency, may need repeat CT head tomorrow if still persistent DEPRESSION, ANXIETY Psych consulted monitor other diagnoses and plan of care as per advanced practitioner's notes Juan Jack MD (2) Chest pain Chest pain type: unspecified Qualified Code(s): R07.9 - Chest pain, unspecified (5) Peripheral neuropathy Peripheral neuropathy type: polyneuropathy, unspecified Qualified Code(s): G62.9 - Polyneuropathy, unspecified
[2024-01-09] MEDS: HYDROCORTISONE 10 MG TAB PO ONE (17:12)
[2024-01-09] MEDS ORDERED: hydrALAZINE HCL 20 MG/ML VIAL IV PRN (17:15)
[2024-01-09] MEDS: ACETAMINOPHEN 325 MG TAB PO PRN (18:41)
[2024-01-09] MEDS: LORazepam 0.5 MG TAB PO PRN (18:41)
[2024-01-09] MEDS: LOSARTAN POTASSIUM 50 MG TAB PO ONE (19:57)
[2024-01-09] MEDS: carvediloL 3.125 MG TAB PO SCH (19:58)
[2024-01-09] MEDS: GABAPENTIN 600 MG TAB PO SCH (19:58)
[2024-01-09] MEDS: CITALOPRAM 40 MG TAB PO SCH (19:58)
[2024-01-09] MEDS: LOSARTAN POTASSIUM 50 MG TAB PO SCH (19:59)
[2024-01-09] MEDS: ATORVASTATIN 10 MG TAB PO SCH (19:59)
[2024-01-09] MEDS: TEMAZEPAM 15 MG CAPSULE PO SCH (20:07)
[2024-01-10 05:15] LABS: Basophils # (auto) 0.06 K/uL (0.00-0.20); Basophils % (auto) 0.8 %; Eosinophils # (auto) 0.13 K/uL (0.00-0.50); Eosinophils % (auto) 1.7 %; Hematocrit (blood only) 28.7 % (37.0-47.0); Hemoglobin 10.4 g/dl (12.0-16.0); Immature Granulocytes # (auto) 0.02 K/uL (0.01-0.20); Immature Granulocytes % (auto) 0.3 %; Lymphocytes # (auto) 3.74 K/uL (1.20-3.40); Lymphocytes % (auto) 49.6 %; Mean Corpuscular Hemoglobin 29.8 pg (25.0-34.0); Mean Corpuscular Hgb Conc 36.2 g/dL (32.0-36.0); Mean Corpuscular Volume 82.2 fL (80.0-100.0); Mean Platelet Volume 9.7 fL (9.4-12.4); Monocytes # (auto) 0.59 K/uL (0.11-0.59); Monocytes % (auto) 7.8 %; Neutrophils % (auto) 39.8 %; Platelet Count 231 K/uL (130-400); RDW Standard Deviation 40.9 fL (36.4-46.3); Red Blood Count 3.49 M/uL (4.20-5.40); White Blood Count 7.54 K/ul (4.8-10.8)
[2024-01-10 05:32] LABS: BUN Creatinine Ratio 18.3 (10-20); Calcium 8.4 mg/dl (8.6-10.3); Creatinine Clr Calc Pharmacy 54.7 ml/min; Magnesium 1.9 mg/dl (1.7-2.4); Phosphorus 3.5 mg/dl (2.5-4.9); Potassium 3.3 mmol/L (3.5-5.1)
[2024-01-10] MEDS: POTASSIUM CHLORIDE CRTAB 20 MEQ TABCR PO STA ×2 (06:10→08:50)
[2024-01-10] MEDS: HYDROCORTISONE 10 MG TAB PO SCH ×2 (07:32→12:42)
[2024-01-10] MEDS: SUCRALFATE 1 GM TAB PO SCH (07:33)
--- NOTE | 2024-01-10 08:32 | Electrocardiogram Report ---
Test Reason : Blood Pressure : */* mmHG Vent. Rate : 55 BPM Atrial Rate : 55 BPM P-R Int : 140 ms QRS Dur : 86 ms QT Int : 504 ms P-R-T Axes : 76 70 70 degrees QTcB Int : 482 ms Sinus bradycardia with occasional Premature ventricular complexes Prolonged QT Abnormal ECG When compared with ECG of 09-Jan-2024 13:37, Premature ventricular complexes are now Present Confirmed by Chapin Beatty ([id number]) on 01/10/2024 8:32:38 AM Referred By: REFERRED SELF Confirmed By: Chapin Beatty
[2024-01-10] MEDS: FAMOTIDINE 40 MG TABLET PO SCH (08:51)
[2024-01-10] MEDS: NICOTINE 14 MG/24 HR PATCH TD SCH (08:54)
[2024-01-10] MEDS ORDERED: ENOXAPARIN INJ 40 MG/0.4 ML SYR SQ SCH (09:00)
[2024-01-10] MEDS: VALSARTAN 80 MG TAB PO SCH (09:09)
--- NOTE | 2024-01-10 10:50 | Discharge Summary ---
Discharge Summary Date of Service January 10, 2024 Principal Dx & Hospital Course #1 = Principal Diagnosis (1) Hypertension, uncontrolled: (2) Depression with anxiety: (3) ADHD: (4) Iatrogenic adrenal insufficiency: (5) Nicotine addiction: Plan Patient presented to the emergency room with reported elevated blood pressures at home that did not seem to be responding to her medications. In the emergency room she was noted to be quite hypertensive but there was no evidence of endorgan damage. She was referred for further management. Patient also expressed that she was under a lot of life stressors. She tried to stop smo kayla. She also increased her hydrocortisone use which she is on for chronic adrenal insufficiency because she felt like she was under a lot of stress emotionally. Patient was admitted to the hospital. She is given additional dose of losartan . She was given 1 dose of IV hydralazine on admission. With these interventions her blood pressure quickly improved. Psychiatry consultation was obtained due to her anxiety and depression. She did not meet criteria for behavioral health admission. They did recommend discontinuing/not continuing her Adderall which patient had done prior to admission. And the patient already follows up with outpatient counseling. They did recommend that they could increase her Seroquel at bedtime to help her with some of her insomnia. Otherwise she can be discharged from a psychiatric standpoint. Patient is on a fairly low dose of losartan outpatient. Losartan is a fairly weak antihypertensive medication. Here in the hospital she was switched to valsartan. This had an immediate effect and improved her blood pressure. At time of discharge blood pressure was 136/77. She was up and ambulatory. She was tolerating her diet. She can be discharged to outpatient care and follow-up with her outpatient providers. Notes For Next Care Provider Patient may need additional titration of her antihypertensive medications Patient should follow-up with her outpatient behavioral health therapist. Medication Changes From Visit Losartan discontinued replaced with valsartan Seroquel nighttime dose increased for insomnia Admission HPI Per Admitting Provider This is a 53 y/o female with iatrogenic adrenal insufficiency, HTN, depression with anxiety, ADHD, and other history as outlined below who presented to the ED with persistently elevated BP at home. Pt reports that she noticed her BP was elevated 5-7 days ago. She was seen in the ED in [place] a few days ago and given unknown medication (?hydralazine) with some improvement so she was discharged. She reports no new BP meds were added at that visit. Once home, she noticed her BP again going up with most recent readings in the last 24 hours being 200/110s. She has been taking extra doses of her losartan and carvedilol to try to help with the BP elevation at home but had no significant relief. Over the same period of time that the BP has been elevated, she describes chest heaviness and discomfort, difficulty taking a deep breath, pounding MENDEZ, nausea, and blurry vision. Over the last two weeks, she has been under increased life stressors so she increased her daily hydrocortisone to prescribed stress doses, which are twice her usual dose. She is unsure exactly when she did increased the hydrocortisone, specifically in relation to when her BP became elevated. She denies similar issues with elevated BP or similar symptoms previously, reporting that she typically has issues with low blood pressure instead of high. Since she noticed the elevated BP, she tried stopping taking the stimulants she was on for ADHD and she cut out all caffeine and stopped vaping (nicotine). Earlier this week, she had watery diarrhea but has had no BM for the last two days. She had vomiting associated with the diarrhea but has not vomited since yesterday. Appetite has been decreased with resultant decreased oral intake. Admission Exam Per Admitting Provider See H&P Discharge Exam Constitutional: Alert, nontoxic in appearance HEENT: Mucous membranes moist. Lungs: Clear to auscultation, decreased, no wheezes rales or rhonchi CV: S1-S2, regular Abdomen: Soft, nontender, nondistended Extremities: No significant edema Neuro: No focal deficits Psych: Cooperative, flat affect, depressed in appearance Updated Medication List Medication Instructions Recorded Confirmed Type citalopram 40 mg tablet 40 mg PO QPM 11/18/18 01/09/24 History famotidine 40 mg tablet 40 mg PO DAILY PRN GERD 06/16/22 01/09/24 History hydrocortisone 5 mg tablet See Rx Instructions PO BID #170 04/05/23 01/09/24 Rx tabs atorvastatin 10 mg tablet 10 mg PO HS 01/09/24 01/09/24 History carvedilol 3.125 mg tablet 3.125 mg PO BID 01/09/24 01/09/24 History dextroamphetamine-amphetamine 10 10 mg PO UD 01/09/24 01/09/24 History mg tablet gabapentin 600 mg tablet 600 mg PO BID 01/09/24 01/09/24 History hydrocortisone sod succ (PF) 100 100 mg IM PRN PRN SEVERE adrenal 01/09/24 01/09/24 History mg/2 mL solution for injection crisis (Solu-Cortef Act-O-Vial (PF)) losartan 50 mg tablet 50 mg PO QAM 01/09/24 01/09/24 History sucralfate 1 gram tablet 1 g PO AC 01/09/24 01/09/24 History temazepam 30 mg capsule 30 mg PO HS 01/09/24 01/09/24 History quetiapine 50 mg tablet 100 mg (2 x 50 mg) PO HS Insomnia 01/10/24 Rx 30 days #60 tabs valsartan 80 mg tablet (Diovan) 160 mg (2 x 80 mg) PO QAM 30 days 01/10/24 Rx #60 tabs Hospital Stay Data Consultations 01/09/24 16:00 ED Decision to Admit Stat Diagnostic Imagining Performed 01/09/24 14:24 CT abd pelvis IV con only Stat CT head/brain wo con Stat 01/09/24 14:28 CT angio head w con Stat CT angio neck with con Stat Reviewed imaging, laboratory and diagnostic studies. Pertinent findings as below. Echocardiogram shows normal ejection fraction, no wall motion abnormalities, I refer you to the full report for details WBCs 7.5 Hemoglobin 10.4 Platelets 231 Potassium 3.3 and was repleted prior to discharge rest of her electrolytes stable Creatinine 0.93 Urinalysis unremarkable Respiratory viral panel negative Imaging unremarkable EKG personally reviewed shows sinus bradycardia 55 bpm, with occasional PVCs Pending Results Patient Have Any Pending Studies at Discharge: No Discharge Instructions Given to Patient (Per Discharging Provider) Strongly encourage you to decrease your smoking or stop smoking. Strongly encourage you to follow-up with your PCP for ongoing monitoring of your blood pressure Strongly encourage you to follow with your PCP or other mental health provider for ongoing care of your depression and anxiety Total Time Total Time Spent Total Time Spent (In Minutes): 36
--- NOTE | 2024-01-10 12:45 | Communication Note ---
Date of Service: January 10, 2024 Patient seen this morning for previous consult order before consult was cancelled by primary team as plan was for discharge. Malgorzata reported feeling "better" and reflected on significant support she has in the outpatient setting for managing her anxiety and stress with her weekly counselor. She likes her psychiatric medications and does not want to make any changes to alternative medications as she finds them helpful, she reflects that she was on a higher dose of Seroquel in the past and wonders if this might help with her recent anxiety. She reflects that sleep has been more difficult recently due to headache and anxiety and we reviewed potential option to try a higher dose of Seroquel perhaps 100mg HS prn for insomnia and anxiety. She had stopped her outpatient Adderall about a week prior due to having more anxious thoughts and having a headache (which she reflects now was likely due to her elevated blood pressure). Psychiatric history was notable for past episode of possible hypomania about 6-8 months ago but did not require hospitalization and was handled in outpatient setting and she reports symptoms resolved in one day. History of depression, anxiety, complicated bereavement. She denies any SI, nor HI nor hallucinations. A/P: Increased anxiety in setting of recent stressors of her cat dying and her father having a amputation surgery and increased BP possibly due to this. Reports feeling better today and has good outpatient support via therapy. Denies any safety concerns (no SI, no HI), no evidence for major mood episode nor janak nor psychosis. Discussed recommendation options with hospitalist provider to increase Seroquel to 100mg HS prn to help with off-label use for anxiety and insomnia and to discontinue Adderall as she hasn't been using this recently and it can increase anxiety and blood pressure. Encouraged ongoing outpatient therapy to help with ongoing life stressors and she understands and agrees to utilize crisis resources and to return to a hospital/emergency room if she ever felt unable to remain safe or felt unable to care for herself or if her psychiatric symptoms were to worsen or not improve.
--- NOTE | 2024-01-10 20:05 | Communication Note ---
Date of Service: January 10, 2024 Made aware by RN of uncontrolled blood pressure. SBP 1 60-1 90s since a.m. Heart rate 50 to 60s Patient asymptomatic as per RN. Patient supposed to be discharged tonight as per RN. AP Hypertensive urgency Increase ARB dose Continue current Coreg dose Cancel discharge for now. Will relay to AM provider.
[2024-01-10] MEDS: QUEtiapine FUMARATE 25 MG TABLET PO PRN (20:57)
[2024-01-10] MEDS: VALSARTAN 80 MG TAB PO STA (20:57)
[2024-01-11] MEDS ORDERED: QUEtiapine FUMARATE 100 MG TABLET PO PRN (07:37)
[2024-01-11] MEDS: ONDANSETRON INJ 2 MG/ML 2 ML VIAL IV PRN (07:44)
[2024-01-11] MEDS: VALSARTAN 80 MG TAB PO SCH (07:51)
--- NOTE | 2024-01-11 08:06 | Hospitalist Progress Note ---
Date of Service January 11, 2024 Assessment & Plan (1) Hypertension, uncontrolled: (2) Depression with anxiety: (3) ADHD: (4) Iatrogenic adrenal insufficiency: (5) Nicotine addiction: Plan Ms. Quinones is a 53 year old woman with a history significant for iatrogenic adrenal insufficiency (secondary to steroid Rx for misdiagnosed IBD as per patient) on chronic steroid Rx, COPD, HCV status post interferon Rx (2012), cirrhosis as per records, GERD, IBS, anxiety/mood disorder, recent COVID-19 illness, past tobacco/alcohol abuse who was admitted for hypertensive urgency. Patient also expressed that she was under a lot of life stressors. She tried to stop smoking. She also increased her hydrocortisone use which she is on for chronic adrenal insufficiency because she felt like she was under a lot of stress emotionally. Patient was admitted to the hospital. Psychiatry consultation was obtained due to her anxiety and depression. She did not meet criteria for behavioral health admission. Patient transitioned to valsartan from losartan. Patient with headache and uncontrolled pressure. Recent adjustment to bp meds overnight. #Migraine minimal relief with tylenol will try toradol/compazine/benadryl cocktail and reassess #Hypertensive urgency #Chest pain, resolved admitted on 01/08 with bp up to 190s, asymptomatic Losartan transitioned to valsartan ECHO with G1DD To be discharged 01/09, bp up to 190s on dispo -Valsartan dose increased overnight Continue coreg Historically low potassium, will trial dose of spironolactone #Iatrogenic adrenal insufficiency: Due to chronic steroids from misdiagnosed IBD continue hydrocortisone 10mg/5mg #Depression with anxiety Evaluated by psych Recommended increasing pm prn Seroquel to 100mg prn discontinued Adderall #Peripheral neuropathy continue gabapentin DVT ambulate, scds Admission and Anticipated Discharge Date Admission Date: January 09, 2024 Subjective Patient with concerns of ongoing headache, like a "clamp" around temples. Room dark, patient reports discomfort to light and unwillingness to move--however, reportedly ate breakfast this am despite nausea medication adjustment overnight will assess response and likely dispo 1-2 days Physical Exam Constitutional: curled up in bed, appears visually uncomfortable on exam Respiratory: normal respiratory effort, lungs clear to auscultation Cardiovascular: RRR, no murmur, no edema Musculoskeletal: no cyanosis or clubbing, extremities motor strength 5/5 Results & Data Results & Data Vital Signs (Past 12 Hours) Vital Signs Temp Pulse Pulse Resp BP Pulse Ox O2 Del Method 01/11/24 07:32 36.6 C 57 L 16 143/86 H 99 Room Air 01/11/24 07:16 56 L 01/11/24 06:50 161/96 H 01/11/24 04:26 161/106 H 01/11/24 03:41 36.8 C 59 L 18 150/82 H 99 Room Air 01/11/24 00:15 62 01/10/24 23:29 36.7 C 60 17 134/87 98 Room Air Medications Administered Home Medications Medication Instructions Recorded Confirmed Last Taken citalopram 40 mg tablet 40 mg PO QPM 11/18/18 01/09/24 01/08/24 famotidine 40 mg tablet 40 mg PO DAILY PRN GERD 06/16/22 01/09/24 Unknown hydrocortisone 5 mg tablet See Rx Instructions PO BID #170 04/05/23 01/09/24 Unknown tabs atorvastatin 10 mg tablet 10 mg PO HS 01/09/24 01/09/24 Unknown carvedilol 3.125 mg tablet 3.125 mg PO BID 01/09/24 01/09/24 01/09/24 dextroamphetamine-amphetamine 10 10 mg PO UD 01/09/24 01/09/24 01/09/24 mg tablet gabapentin 600 mg tablet 600 mg PO BID 01/09/24 01/09/24 Unknown hydrocortisone sod succ (PF) 100 100 mg IM PRN PRN SEVERE adrenal 01/09/24 01/09/24 Unknown mg/2 mL solution for injection crisis (Solu-Cortef Act-O-Vial (PF)) losartan 50 mg tablet 50 mg PO QAM 01/09/24 01/09/24 01/09/24 sucralfate 1 gram tablet 1 g PO AC 01/09/24 01/09/24 01/09/24 temazepam 30 mg capsule 30 mg PO HS 01/09/24 01/09/24 Unknown quetiapine 50 mg tablet 100 mg (2 x 50 mg) PO HS Insomnia 01/10/24 Unknown 30 days #60 tabs valsartan 80 mg tablet (Diovan) 160 mg (2 x 80 mg) PO QAM 30 days 01/10/24 Unknown #60 tabs Active Medications Generic Name Dose Route Start Last Admin Trade Name Freq PRN Reason Stop Dose Admin Acetaminophen 650 mg 01/09/24 17:51 01/11/24 11:02 Acetaminophen 325 Mg Tab PO 02/08/24 17:50 650 mg Q4H PRN Administration Pain or Fever Atorvastatin Calcium 10 mg 01/09/24 21:00 01/10/24 19:48 Atorvastatin 10 Mg Tab PO 02/08/24 20:59 10 mg HS SANDI Administration Carvedilol 3.125 mg 01/09/24 18:00 01/11/24 07:55 Carvedilol 3.125 Mg Tab PO 02/08/24 17:59 3.125 mg BIDM SANDI Administration Citalopram Hydrobromide 40 mg 01/09/24 21:00 01/10/24 19:47 Citalopram 40 Mg Tab PO 02/08/24 20:59 40 mg QPM SANDI Administration Famotidine 40 mg 01/10/24 09:00 01/11/24 07:50 Famotidine 40 Mg Tablet PO 02/09/24 08:59 40 mg DAILY SANDI Administration Gabapentin 600 mg 01/09/24 21:00 01/11/24 07:51 Gabapentin 600 Mg Tab PO 02/08/24 20:59 600 mg BID SANDI Administration Hydrocortisone 10 mg 01/10/24 08:00 01/11/24 07:55 Hydrocortisone 10 Mg Tab PO 02/09/24 07:59 10 mg 0800 SANDI Administration Hydrocortisone 5 mg 01/10/24 12:00 01/11/24 11:02 Hydrocortisone 10 Mg Tab PO 02/09/24 11:59 5 mg 1200 SANDI Administration Lorazepam 0.5 mg 01/09/24 17:51 01/10/24 16:50 Lorazepam 0.5 Mg Tab PO 02/08/24 17:50 0.5 mg BID PRN Administration Anxiety Miscellaneous 1 each 01/10/24 08:59 01/11/24 07:55 Remove Nicoderm Patch N/A 02/09/24 08:58 1 each [id number]@[id number] SANDI Administration Nicotine 1 patch 01/10/24 09:00 01/11/24 07:55 Nicotine 14 Mg/24 Hr Patch TD 02/09/24 08:59 1 patch QAM SANDI Administration Ondansetron HCl 4 mg 01/11/24 07:36 11/02/24 07:44 Ondansetron Inj 2 Mg/Ml 2 Ml Vial IV 02/10/24 07:35 4 mg Q4H PRN Administration Nausea Spironolactone 12.5 mg 01/11/24 11:45 01/11/24 11:57 Spironolactone 12.5 Mg Tab PO 02/10/24 11:44 12.5 mg DAILY SANDI Administration Sucralfate 1 gm 01/10/24 07:30 01/11/24 11:02 Sucralfate 1 Gm Tab PO 02/09/24 07:29 1 gm AC SANDI Administration Temazepam 30 mg 01/09/24 21:00 01/10/24 19:48 Temazepam 15 Mg Capsule PO 02/08/24 20:59 30 mg HS SANDI Administration Valsartan 320 mg 01/11/24 09:00 01/11/24 07:51 Valsartan 80 Mg Tab PO 02/10/24 08:59 320 mg QAM SANDI Administration
[2024-01-11] MEDS: KETOROLAC TROMETHAMINE 15 MG/ML VIAL IV ONE (11:44)
[2024-01-11] MEDS: diphenhydrAMINE 50 MG/ML VIAL IV STA (11:45)
[2024-01-11] MEDS: PROCHLORPERAZINE 5 MG in SYRINGE 4 ML IV ONE (11:57)
[2024-01-11] MEDS: SPIRONOLACTONE 12.5 MG TAB PO SCH (11:57)
[2024-01-11 12:35] LABS: BUN Creatinine Ratio 14.4 (10-20); Calcium 8.8 mg/dl (8.6-10.3); Creatinine Clr Calc Pharmacy 56.5 ml/min; Potassium 4.2 mmol/L (3.5-5.1)
[2024-01-11] MEDS: MAGNESIUM SULFATE / D5W 1 GM/100 ML BAG IV ONE (15:04)
--- NOTE | 2024-01-11 15:34 | Communication Note ---
Date of Service: January 11, 2024 Neurology Consult received for migraine. Unable to connect over televideo due to technology failure. I have reviewed her chart and imaging and agree with current plan for migraine cocktails and a trial of Depakote. No evidence of secondary headache cause based on imaging obtained (CT/CTA). Nothing further to add at this time, will reattempt if able.
[2024-01-11] MEDS: VALPROATE SOD 500 MG in DEXTROSE 5% 50 ML IV STA (15:43)
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
[2024-01-11 22:58] VITALS: O2SAT 98
[2024-01-12 05:28] LABS: Calcium 8.7 mg/dl (8.6-10.3); Creatinine Clr Calc Pharmacy 50.9 ml/min; Magnesium 2.3 mg/dl (1.7-2.4)
--- NOTE | 2024-01-12 07:03 | Hospitalist Progress Note ---
Date of Service January 12, 2024 Assessment & Plan (1) Hypertension, uncontrolled: (2) Depression with anxiety: (3) ADHD: (4) Iatrogenic adrenal insufficiency: (5) Nicotine addiction: Plan Ms. Quinones is a 53 year old woman with a history significant for iatrogenic adrenal insufficiency (secondary to steroid Rx for misdiagnosed IBD as per patient) on chronic steroid Rx, COPD, HCV status post interferon Rx (2012), cirrhosis as per records, GERD, IBS, anxiety/mood disorder, recent COVID-19 illness, past tobacco/alcohol abuse who was admitted for hypertensive urgency. Patient also expressed that she was under a lot of life stressors. She tried to stop smoking. She also increased her hydrocortisone use which she is on for chronic adrenal insufficiency because she felt like she was under a lot of stress emotionally. Patient was admitted to the hospital. Psychiatry consultation was obtained due to her anxiety and depression. She did not meet criteria for behavioral health admission. Patient transitioned to valsartan from losartan. Patient with headache and uncontrolled pressure. Recent adjustment to bp meds overnight. #Migraine minimal relief with tylenol will try toradol/compazine/benadryl cocktail and reassess #Hypertensive urgency #Chest pain, resolved admitted on 01/08 with bp up to 190s, asymptomatic Losartan transitioned to valsartan ECHO with G1DD To be discharged 01/09, bp up to 190s on dispo -Valsartan dose increased overnight Continue coreg Historically low potassium, will trial dose of spironolactone #Iatrogenic adrenal insufficiency: Due to chronic steroids from misdiagnosed IBD continue hydrocortisone 10mg/5mg #Depression with anxiety Evaluated by psych Recommended increasing pm prn Seroquel to 100mg prn discontinued Adderall #Peripheral neuropathy continue gabapentin DVT ambulate, scds Admission and Anticipated Discharge Date Admission Date: January 09, 2024 Results & Data Results & Data Vital Signs (Past 12 Hours) Vital Signs Temp Pulse Pulse Resp BP BP Pulse Ox 01/12/24 02:54 37.4 C 51 L 18 150/93 H 98 01/11/24 22:57 36.7 C 58 L 16 141/81 H 98 01/11/24 21:58 58 L O2 Del Method 01/12/24 02:54 Room Air 01/11/24 22:57 Room Air 01/11/24 21:58
[2024-01-12] MEDS: HYDROCORTISONE 10 MG TAB PO SCH (07:56)
[2024-01-12] MEDS ORDERED: VERAPAMIL HCL 120 MG TABCR PO SCH (09:00)
[2024-01-12] MEDS ORDERED: VERAPAMIL HCL 180 MG TABCR PO SCH (09:00)
[2024-01-12 09:55] VITALS: RESP 17; TEMP 99.3
[2024-01-12] MEDS: LORazepam 2 MG/1 ML VIAL IV STA (10:55)
--- NOTE | 2024-01-12 13:03 | Magnetic Resonance Report ---
MR brain wo con HISTORY: 53 years-old Female headache, new quality acute headache COMPARISON: Head CT 01/09/2024 TECHNIQUE: Multiplanar multisequence MRI of the brain was obtained without IV contrast FINDINGS: No restricted diffusion to suggest acute or subacute infarct. Midline structures appear unremarkable. No pathologic blooming artifact. There is no acute intracranial hemorrhage, midline shift, abnormal extra-axial collection, hydrocephalus or intra-axial mass. Cerebral venous sinuses and major arterial flow voids appear patent. Skull, orbits and soft tissues a re unremarkable. Trace mastoid effusions. Minimal mucosal thickening of the maxillary sinuses. Normal brain volume. There are a few scattered punctate foci of T2/FLAIR prolongation within the white monae er of the cerebral hemispheres, likely of no clinical significance. Findings may represent early materials handler césar microvascular ischemic disease. IMPRESSION: Unremarkable MRI of the brain. ACT 112: Negative or not required by law. The above report was generated using voice recognition software. It may contain grammatical, syntax o r spelling errors. Electronically signed by: Ede Amado M.D. 01/12/2024 1:00 PM
--- NOTE | 2024-01-12 13:58 | Discharge Summary ---
Discharge Summary Date of Service January 12, 2024 Principal Dx & Hospital Course #1 = Principal Diagnosis (1) Hypertension, uncontrolled: (2) Depression with anxiety: (3) ADHD: (4) Iatrogenic adrenal insufficiency: (5) Nicotine addiction: Plan Ms. Quinones is a 53 year old woman with a history significant for iatrogenic adrenal insufficiency (secondary to steroid Rx for misdiagnosed IBD as per patient) on chronic steroid Rx, COPD, HCV status post interferon Rx (2012), cirrhosis as per records, GERD, IBS, anxiety/mood disorder, recent COVID-19 illness, past tobacco/alcohol abuse who was admitted for hypertensive urgency. Patient also expressed that she was under a lot of life stressors. She tried to stop smoking. She also increased her hydrocortisone use which she is on for chronic adrenal insufficiency because she felt like she was under a lot of stress emotionally. Patient was admitted to the hospital. Psychiatry consultation was obtained due to her anxiety and depression. She did not meet criteria for behavioral health admission. Patient transitioned to valsartan from losartan. Patient with headache and uncontrolled pressure. Recent adjustment to bp meds overnight. #Migraine minimal relief with tylenol will try toradol/compazine/benadryl cocktail and reassess Recommend OP follow up with PCP and OP Neurology #Hypertensive urgency #Chest pain, resolved admitted on 01/08 with bp up to 190s, asymptomatic Losartan transitioned to valsartan ECHO with G1DD To be discharged 01/09, bp up to 190s on dispo -Valsartan dose increased overnight 01/09 -BP stable on 320mg Valsartan Continue coreg Historically low potassium, will trial dose of spironolactone #Iatrogenic adrenal insufficiency: Due to chronic steroids from misdiagnosed IBD continue hydrocortisone 10mg/5mg #Depression with anxiety Evaluated by psych Recommended increasing pm prn Seroquel to 100mg prn discontinued Adderall #Peripheral neuropathy continue gabapentin Notes For Next Care Provider Follow up with Endocrinology Follow up with PCP for BP control, consider addition of verapamil if headaches return Follow up with Neurology for migraines if continued Medication Changes From Visit Discontinued Adderall Discontinue losartan for valsartan 320mg daily Admission HPI Per Admitting Provider This is a 53 y/o female with iatrogenic adrenal insufficiency, HTN, depression with anxiety, ADHD, and other history as outlined below who presented to the ED with persistently elevated BP at home. Pt reports that she noticed her BP was elevated 5-7 days ago. She was seen in the ED in [place] a few days ago and given unknown medication (?hydralazine) with some improvement so she was discharged. She reports no new BP meds were added at that visit. Once home, she noticed her BP again going up with most recent readings in the last 24 hours being 200/110s. She has been taking extra doses of her losartan and carvedilol to try to help with the BP elevation at home but had no significant relief. Over the same period of time that the BP has been elevated, she describes chest heaviness and discomfort, difficulty taking a deep breath, pounding MENDEZ, nausea, and blurry vision. Over the last two weeks, she has been under increased life stressors so she increased her daily hydrocortisone to prescribed stress doses, which are twice her usual dose. She is unsure exactly when she did increased the hydrocortisone, specifically in relation to when her BP became elevated. She denies similar issues with elevated BP or similar symptoms previously, reporting that she typically has issues with low blood pressure instead of high. Since she noticed the elevated BP, she tried stopping taking the stimulants she was on for ADHD and she cut out all caffeine and stopped vaping (nicotine). Earlier this week, she had watery diarrhea but has had no BM for the last two days. She had vomiting associated with the diarrhea but has not vomited since yesterday. Appetite has been decreased with resultant decreased oral intake. Admission Exam Per Admitting Provider General: lying in dark room with eyes closed, does not appear in distress but reports she cannot get comfortable in any position HEENT: moist oral mucosa Neck: trachea midline, supple Heart: RRR Lungs: CTA bilaterally Abdomen: soft, NT, +BS Extremities: distal pulses intact and equal, no pedal edema Skin: warm, dry, no rashes or jaundice Neurologic: no confusion or dysarthria, moving all extremities, no focal deficit, +difficulty recalling details of recent history Psych: anxious affect Discharge Exam Respiratory normal respiratory effort, lungs clear to auscultation Cardiovascular RRR, no murmur, no edema Musculoskeletal no cyanosis or clubbing, extremities motor strength 5/5 Updated Medication List Medication Instructions Recorded Confirmed Type citalopram 40 mg tablet 40 mg PO QPM 11/18/18 01/09/24 History famotidine 40 mg tablet 40 mg PO DAILY PRN GERD 06/16/22 01/09/24 History atorvastatin 10 mg tablet 10 mg PO HS 01/09/24 01/09/24 History carvedilol 3.125 mg tablet 3.125 mg PO BID 01/09/24 01/09/24 History gabapentin 600 mg tablet 600 mg PO BID 01/09/24 01/09/24 History hydrocortisone sod succ (PF) 100 100 mg IM PRN PRN SEVERE adrenal 01/09/24 01/09/24 History mg/2 mL solution for injection crisis (Solu-Cortef Act-O-Vial (PF)) sucralfate 1 gram tablet 1 g PO AC 01/09/24 01/09/24 History temazepam 30 mg capsule 30 mg PO HS 01/09/24 01/09/24 History hydrocortisone 5 mg tablet See Rx Instructions PO BID #170 01/10/24 Rx tabs quetiapine 50 mg tablet 100 mg (2 x 50 mg) PO HS Insomnia 01/10/24 Rx 30 days #60 tabs valsartan 320 mg tablet 320 mg PO DAILY #30 tabs 01/12/24 Rx Hospital Stay Data Consultations 01/09/24 16:00 ED Decision to Admit Stat 01/11/24 14:39 Consult Neurology Routine Diagnostic Imagining Performed 01/09/24 14:24 CT abd pelvis IV con only Stat CT head/brain wo con Stat 01/09/24 14:28 CT angio head w con Stat CT angio neck with con Stat 01/12/24 09:10 MR brain wo con Routine Pending Results Patient Have Any Pending Studies at Discharge: No Discharge Instructions Given to Patient (Per Discharging Provider) Strongly encourage you to decrease your smoking or stop smoking. Strongly encourage you to follow-up with your PCP for ongoing monitoring of your blood pressure Strongly encourage you to follow with your PCP or other mental health provider for ongoing care of your depression and anxiety Total Time Total Time Spent Total Time Spent (In Minutes): 45
[2024-01-12 14:36] VITALS: BP 141/81; PULSE 60
[2024-01-12] MEDS ORDERED: VALSARTAN 80 MG TAB PO SCH (16:30)
[2024-01-12] MEDS ORDERED: QUEtiapine FUMARATE 100 MG TABLET PO SCH (16:30)
== END 2024-01-12 18:13 | disposition home or self-care (01) ==
LOC: ED 13:34 → INTOOBSV 16:49 → 4W 16:49 → SUATTDRO 16:49 → 4W 17:23